=== PATIENT | male | born 1935 | race Caucasian/White ===

== ENCOUNTER → 2016-06-06 | Outpatient (CLI) | payer OTHER ==
[2016-06-06 09:47] LABS: INR 2.4 (0.9-1.1); PROTHROMBIN TIME (PATIENT) 26.9 SECONDS (9.0-12.0)
== END | disposition home or self-care (01) ==
LOC: C.LABVPSUW 09:27
PROVIDERS: ATTEND Internal Medicine Critical Care Medicine
DX: I82.409 Acute embolism and thrombosis of unspecified deep veins of unspecified lower extremity (principal)

== ENCOUNTER → 2016-07-04 | Outpatient (CLI) | payer OTHER ==
[2016-07-04 10:57] LABS: INR 1.9 (0.9-1.1); PROTHROMBIN TIME (PATIENT) 20.5 SECONDS (9.0-12.0)
== END | disposition home or self-care (01) ==
LOC: C.LABVPSUW 10:21
PROVIDERS: ATTEND Internal Medicine Critical Care Medicine
DX: I82.409 Acute embolism and thrombosis of unspecified deep veins of unspecified lower extremity (principal)

== ENCOUNTER → 2016-08-17 | Outpatient (CLI) | payer OTHER ==
[2016-08-17 09:58] LABS: INR 2.3 (0.9-1.1); PROTHROMBIN TIME (PATIENT) 25.1 SECONDS (9.0-12.0)
== END ==
LOC: C.LABVPSUW 09:00
PROVIDERS: ATTEND Internal Medicine Critical Care Medicine
DX: I82.409 Acute embolism and thrombosis of unspecified deep veins of unspecified lower extremity (principal)

== ENCOUNTER → 2016-09-15 | Outpatient (CLI) | payer OTHER ==
[2016-09-15 09:23] LABS: INR 2.5 (0.9-1.1); PROTHROMBIN TIME (PATIENT) 28.1 SECONDS (9.0-12.0)
== END ==
LOC: C.LABVPSUW 08:59
PROVIDERS: ATTEND Internal Medicine Critical Care Medicine
DX: I82.409 Acute embolism and thrombosis of unspecified deep veins of unspecified lower extremity (principal)

== ENCOUNTER → 2016-10-13 | Outpatient (CLI) | payer OTHER ==
[2016-10-13 09:28] LABS: INR 2.1 (0.9-1.1); PROTHROMBIN TIME (PATIENT) 22.9 SECONDS (9.0-12.0)
== END | disposition home or self-care (01) ==
LOC: C.LABVPSUW 09:06
PROVIDERS: ATTEND Internal Medicine Critical Care Medicine
DX: I82.409 Acute embolism and thrombosis of unspecified deep veins of unspecified lower extremity (principal)

== ENCOUNTER → 2016-11-10 | Outpatient (CLI) | payer OTHER ==
[2016-11-10 10:19] LABS: INR 1.8 (0.9-1.1); PROTHROMBIN TIME (PATIENT) 19.5 SECONDS (9.0-12.0)
== END | disposition home or self-care (01) ==
LOC: C.LABVPSUW 09:30
PROVIDERS: ATTEND Internal Medicine Critical Care Medicine
DX: I82.409 Acute embolism and thrombosis of unspecified deep veins of unspecified lower extremity (principal)

== ENCOUNTER → 2016-12-11 | Outpatient (CLI) | payer OTHER ==
[2016-12-11 11:09] LABS: INR 2.1 (0.9-1.1); PROTHROMBIN TIME (PATIENT) 23.6 SECONDS (9.0-12.0)
== END | disposition home or self-care (01) ==
LOC: C.LABVPSUW 10:34
PROVIDERS: ATTEND Internal Medicine Critical Care Medicine
DX: I82.409 Acute embolism and thrombosis of unspecified deep veins of unspecified lower extremity (principal); I48.91 Unspecified atrial fibrillation

== ENCOUNTER → 2017-01-10 | Outpatient (CLI) | payer OTHER ==
[2017-01-10 10:54] LABS: INR 2.5 (0.9-1.1); PROTHROMBIN TIME (PATIENT) 27.8 SECONDS (9.0-12.0)
== END | disposition home or self-care (01) ==
LOC: C.LABVPSUW 09:51
PROVIDERS: ATTEND Internal Medicine Critical Care Medicine
DX: I82.409 Acute embolism and thrombosis of unspecified deep veins of unspecified lower extremity (principal)

== ENCOUNTER → 2017-02-07 | Outpatient (CLI) | payer OTHER ==
[2017-02-07 10:01] LABS: INR 2.3 (0.9-1.1); PROTHROMBIN TIME (PATIENT) 25.2 SECONDS (9.0-12.0)
== END | disposition home or self-care (01) ==
LOC: C.LABVPSUW 09:20
PROVIDERS: ATTEND Internal Medicine Critical Care Medicine
DX: I82.409 Acute embolism and thrombosis of unspecified deep veins of unspecified lower extremity (principal)

== ENCOUNTER → 2017-04-11 | Outpatient (CLI) | payer OTHER ==
[2017-04-11 09:33] LABS: INR 2.3 (0.9-1.1); PROTHROMBIN TIME (PATIENT) 24.1 SECONDS (9.0-12.0)
== END | disposition home or self-care (01) ==
LOC: C.LABVPSUW 09:08
PROVIDERS: ATTEND Internal Medicine Critical Care Medicine
DX: I48.91 Unspecified atrial fibrillation (principal); I82.409 Acute embolism and thrombosis of unspecified deep veins of unspecified lower extremity

== ENCOUNTER → 2017-05-09 | Outpatient (CLI) | payer OTHER ==
[2017-05-09 09:37] LABS: INR 2.5 (0.9-1.1)
== END | disposition home or self-care (01) ==
LOC: C.LABSPEC 08:53
PROVIDERS: ATTEND Internal Medicine Critical Care Medicine
DX: I82.409 Acute embolism and thrombosis of unspecified deep veins of unspecified lower extremity (principal)

== ENCOUNTER → 2017-06-11 | Outpatient (CLI) | payer OTHER ==
[2017-06-11 10:16] LABS: INR 1.7 (0.9-1.1)
== END | disposition home or self-care (01) ==
LOC: C.LABVPSUW 09:17
PROVIDERS: ATTEND Internal Medicine Critical Care Medicine
DX: I82.409 Acute embolism and thrombosis of unspecified deep veins of unspecified lower extremity (principal)

== ENCOUNTER → 2017-07-09 | Outpatient (CLI) | payer OTHER ==
[2017-07-09 09:15] LABS: INR 1.8 (0.9-1.1)
== END ==
LOC: C.LABVPSUW 08:53
PROVIDERS: ATTEND Internal Medicine Critical Care Medicine
DX: I82.409 Acute embolism and thrombosis of unspecified deep veins of unspecified lower extremity (principal)

== ENCOUNTER → 2017-08-07 | Outpatient (CLI) | payer OTHER ==
[2017-08-07 10:05] LABS: INR 1.9 (0.9-1.1)
== END | disposition home or self-care (01) ==
LOC: C.LABVPSUW 09:11
PROVIDERS: ATTEND Internal Medicine Critical Care Medicine
DX: I82.409 Acute embolism and thrombosis of unspecified deep veins of unspecified lower extremity (principal); I87.2 Venous insufficiency (chronic) (peripheral)

== ENCOUNTER → 2017-09-11 | Outpatient (CLI) | payer OTHER ==
[2017-09-11 09:52] LABS: INR 1.7 (0.9-1.1)
== END | disposition home or self-care (01) ==
LOC: C.LABVPSUW 09:16
PROVIDERS: ATTEND Internal Medicine Critical Care Medicine
DX: I82.409 Acute embolism and thrombosis of unspecified deep veins of unspecified lower extremity (principal); I87.2 Venous insufficiency (chronic) (peripheral)

== ENCOUNTER → 2017-12-11 | Outpatient (CLI) | payer OTHER ==
[2017-12-11 10:53] LABS: INR 2.2 (0.9-1.1)
== END | disposition home or self-care (01) ==
LOC: C.LABVPSUW 09:13
PROVIDERS: ATTEND Internal Medicine Critical Care Medicine
DX: I82.409 Acute embolism and thrombosis of unspecified deep veins of unspecified lower extremity (principal); I87.2 Venous insufficiency (chronic) (peripheral)

== ENCOUNTER 2020-05-27 11:20 | Inpatient (IN) ==
--- NOTE | 2020-05-27 11:42 | Emergency Department Note ---
Impression & Plan Acute CVA (cerebrovascular accident), Episodic ataxia with slurred speech ED Provider Note NAME: LAURIE CANCHOLA AGE: 84 SEX: M : 1935 ARRIVES VIA: Walk-In INFORMANT: Patient, ED PROVIDER(S): Abdoul Mcdermott MD Chief Complaint: Slurred speech, gait and balance HPI: Patient does present with the daughter at the bedside. Patient reportedly has some slurred speech and gait difficulty beginning around 8 AM this morning. No recent falls or trauma. The patient does take Coumadin for history of blood clot per the daughter. No recent complaints from the patient. They do believe that the slurred speech has improved but lasted approximately 2 to 3 hours. Patient at the bedside denies any headache neck pain chest pain, nausea, vomiting, fevers, chills, abdominal pain, lower extremity swelling. Patient states his appetite has been appropriate. No prior history of stroke. Patient reportedly has been compliant with his medications. ROS: See HPI for pertinent positives and negatives. A total of 10 systems were reviewed and otherwise negative. Past medical history: See below Surgical history: See below Social history: See below Physical Exam: GENERAL: Glasses and a mask. NAD, non-toxic. EYE EXAM: Normal conjunctiva. PERRL, no anisocoria and EOM's grossly intact w/o pain. NECK: Supple, no nuchal rigidity, no adenopathy, non-tender. No signs of meningismus. LUNGS: Clear to auscultation. Normal chest wall mechanics. HEART: NSR, no MRG. ABDOMEN: Abdomen soft, non-tender, normo-active bowel sounds, no masses, no rebound or guarding. BACK: No CVA TTP. SKIN: No rashes and no bruising. UPPER EXTREMITIES: Upper extremities are grossly normal. LOWER EXTREMITIES: Grossly normal, no edema. NEURO EXAM: A&O x3, cranial nerves II-XII grossly intact, normal speech, moves all 4 extremities on command w/o issue. Differential diagnoses: Infection, dehydration, metabolic abnormality, hypo/hyp erglycemia, electrolyte disturbance, anemia, hypoxia, cardiac sources, intracerebral event, toxicologic, neurologic, as well as other pathologies. Course: Patient was seen and evaluated the bedside. Full history physical exam was performed. EKG: Indication: Weakness Tachycardia with first-degree AV block, rate of 58, prolonged RI, normal QRS and axis, no ST changes. Imaging Studies: Radiology results as stated below per my review in the radiologist's interpretation: UNENHANCED CT OF THE BRAIN; CT ANGIOGRAM OF THE BRAIN; CT ANGIOGRAM OF THE NECK CLINICAL HISTORY: Strokelike symptoms. COMPARISON STUDY: No priors. TECHNIQUE: Unenhanced axial CT scan of the brain is performed. Subsequently, following the IV administration of 119 of Optiray 320, CT angiogram of the head and neck was performed from the aortic arch to the vertex. Images are reviewed in the axial, sagittal, and coronal planes. 3-D MIPS images are created and assessed. IV contrast was administered without complication. All measurements were calculated based on NASCET criteria. A dose lowering technique was utilize d adhering to the principles of ALARA. CT DOSE: 1487.86 mGy.cm FINDINGS: Brain parenchyma: There is age-related involutional change noting moderate subcortical and periventricular microangiopathic disease. There is a 1.5 cm low- attenuation focus in the left basal ganglia seen on image #15. There is no hemorrhage, mass effect, or evidence of acute territorial ischemia by CT criteria. A small chronic lacunar infarct is noted in the right cerebellar hemisphere. There is no evidence of enhancing mass lesion on the angiogram phase images. The ventricles, sulci, and cisterns are prominent secondary to involutional change. Florian-white matter differentiation is preserved. No extra- axial fluid collection is seen. Thoracic aorta: There is atherosclerotic calcification of the thoracic aorta. Visualized portions of the thoracic aorta are normal in caliber. The aortic arch demonstrates standard 3-vessel anatomy. Right carotid arterial system: The right common carotid artery is widely patent, as are the right internal and external carotid arteries. Calcified plaque is seen in the right carotid bulb in the proximal right internal carotid artery. Left carotid arterial system: The left common carotid artery is widely patent, as are the left internal and external carotid arteries. Mild plaque is seen in the carotid bulb. Vertebral arteries: The vertebral arteries are widely patent and codominant. Subclavian arteries: There is less than 50% stenosis of the left subclavian artery and the right innominate artery below the thoracic outlet. Intracranial vasculature: There is atherosclerotic calcification of the cavernous carotid and vertebral arteries. There is origin of the right posterior cerebral artery. There is atherosclerotic irregularity of the cavernous carotid arteries bilaterally. The internal carotid arteries are patent at the skull base, as are the anterior and middle cerebral arteries bilaterally. The vertebrobasilar system and posterior cerebral arteries are patent. The vertebral arteries are codominant. There is no aneurysm, high-grade stenosis, or focal vessel cut off seen throughout the intracranial circulation. Jugular veins: Patent bilaterally. Dural sinuses: Patent. Lung apices: Partially visualized upper lobe lung parenchyma appears clear. Midline sternotomy wires are noted. Soft tissues: The visualized pharyngeal soft tissues are normal in appearance noting angiographic phase technique. The oropharyngeal airway appears widely patent. The salivary and thyroid glands are normal in appearance. No cervical lymphadenopathy is seen. Skeletal structures: The skeletal structures are osteopenic. The calvarium appears intact. The cervical spine is maintained noting multilevel spondylosis. No lytic or blastic lesion is seen. Orbits: The bony orbits are intact. Orbital contents are normal as imaged. Sinuses and mastoids: The paranasal sinuses are clear. The mastoid air cells are well pneumatized. IMPRESSION: 1. There is no hemorrhage, mass effect, or evidence of acute territorial ischemia by CT criteria. 2. There is a 1.5 cm focus of low-attenuation identified in the left basal ganglia. This is of indeterminant chronicity and significance. A subacute to chronic lacunar infarct Is not excluded. If clinically warranted an MRI could be considered for further assessment. 3. Unremarkable CT angiogram of the brain. 4. Unremarkable sonogram of the neck. ACT 112: Negative or not required by law. Electronically signed by: Robb Joe M.D. 05/27/2020 1:07 PM Dictated: 05/27/20 1256 Transcribed: 05/27/20 1305 Brain MRI WITHOUT CONTRAST HISTORY: Visual difficulties. CVA symptoms TECHNIQUE: Multiplanar multisequence MRI of the brain was performed without the use of contrast. COMPARISON STUDY: Head CT 05/27/2020. FINDINGS: A 1.7 cm focus of restricted diffusion within the left basal ganglia consistent with an acute infarct. The midline structures are intact. The ventricles and sulci demonstrate mild age-related involutional changes. There is no mass, hematoma, or midline shift. There is associated edema at the left basal ganglia infarct. The major vascular flow-voids at the skull base are well maintained. Paranasal sinuses and mastoid air cells are clear. Multiple scattered punctate foci of T2 hyperintensity seen within the periventricular and subcortical white matter. These are nonspecific but favor mild microvascular ischemic change. IMPRESSION: An acute left basal ganglia infarct. ACT 112: Negative or not required by law. Electronically signed by: Francis Tirado M.D. 05/27/2020 4:02 PM Dictated: 05/27/20 1600 Transcribed: 05/27/20 1600 Cardiac monitoring: An order was placed for continuous cardiac monitoring. The monitor shows a rate of 63 with sinus rhythm. MDM: Patient did present with concern for slurred speech and ambulatory dysfunction. No slurred speech on exam the patient is awake alert oriented follows commands. No recent signs of trauma. EKG is unremarkable. CT of the head and CT angiography of the head neck which did show a low-attenuation focus of the left basal ganglia. Noncon CT is negative. Patient does have concern for possible infarct. I did speak with the on-call hospitalist Dr. Hayes. The patient was admitted to the medicine service. MRI does show acute left basal ganglia infarct. Patient was admitted to the medicine service. 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 Feels Safe at Home: Yes Physical Activity Frequency: 1-2 Times per Week Physical Activity Frequency Comment: Walks Allergies Allergies Allergy/AdvReac Type Severity Reaction Status Date / Time No Known Allergies Allergy Unverified 05/27/20 13:00 Home Meds Home Medications Medication Instructions Recorded Confirmed aspirin 81 mg PO DAILY 05/27/20 05/27/20 atorvastatin 20 mg PO DAILY 05/27/20 05/27/20 cholecalciferol (vitamin D3) 25 mcg PO DAILY 05/27/20 05/27/20 [Vitamin D3] galantamine 16 mg PO QAM 05/27/20 05/27/20 memantine 28 mg PO DAILY 05/27/20 05/27/20 metoprolol succinate 100 mg PO DAILY 05/27/20 05/27/20 warfarin 4 mg PO DAILY 05/27/20 05/27/20 Results & Data (ED) Vital Signs Vital Signs - 24 hr 05/27/20 11:23 05/27/20 13:39 05/27/20 15:26 Temperature 36.8 C Temperature Source Oral Pulse Rate 63 Pulse Rate [Apical] 62 61 Pulse Rhythm [Apical] Regular Pulse Strength [Apical] Normal Respiratory Rate 18 16 16 Respiratory Effort / Characteristics Non-Labored Spontaneous Non-Labored Spontaneous Respiratory Depth Normal Normal Respiratory Pattern Regular Regular Blood Pressure 138/68 Blood Pressure [Right Arm] 187/77 H Blood Pressure Mean 91 Blood Pressure Mean [Right Arm] 113 Pulse Oximetry 98 96 97 Oxygen Delivery Method Room Air Room Air Room Air Sepsis Recent Fever Within 48 Hours No Sepsis New/Unexplained Change in Mental Status No Sepsis Action Taken by Nursing No Action Required Home Medications Current Medication List: was personally reviewed by me Laboratory Data Attestation: I reviewed the patient's lab results. Result diagrams: 05/27/20 11:47 05/27/20 11:47 Lab Results 05/27/20 05/27/20 05/27/20 Range/Units 11:47 11:47 11:47 WBC 6.38 (4.8-10.8) K/uL RBC 4.29 L (4.7-6.1) M/uL Hgb 14.1 (14.0-18.0) g/dL Hct 41.2 L (42-52) % MCV 96.0 (80-100) fL MCH 32.9 (25-34) pg MCHC 34.2 (32-36) g/dL RDW Std Deviation 44.3 (36.4-46.3) fL RDW Coeff of Lety 12.7 (11.5-14.5) % Plt Count 225 (130-400) K/uL MPV 11.5 H (7.4-10.4) fL Immature Gran % (Auto) 0.2 % Neut % (Auto) 70.1 % Lymph % (Auto) 16.8 % Baldwin % (Auto) 11.8 % Eos % (Auto) 0.9 % Baso % (Auto) 0.2 % Neut # (Auto) 4.48 (1.4-6.5) K/uL Lymph # (Auto) 1.07 L (1.2-3.4) K/uL Baldwin # (Auto) 0.75 H (0.11-0.59) K/uL Eos # (Auto) 0.06 (0-0.5) K/uL Baso # (Auto) 0.01 (0-0.2) K/uL Immature Gran # (Auto) 0.01 (0.00-0.02) K/uL PT 17.1 H (9.0-12.0) Seconds INR 1.7 H (0.9-1.1) APTT 30.1 (21.0-31.0) Seconds PTT Ratio 1.1 Sodium 138 (136-145) mmol/L Potassium 4.0 (3.5-5.1) mmol/L Chloride 107 (98-107) mmol/L Carbon Dioxide 24 (21-32) mmol/L Anion Gap 7.0 (3-11) BUN 16 (7-18) mg/dl Creatinine 1.30 (0.6-1.4) mg/dl Est Cr Clr Drug Dosing 43.4 ml/min Est GFR ( Amer) 57.3 Est GFR (Non-Af Amer) 49.4 BUN/Creatinine Ratio 12.2 (10-20) Glucose 98 (70-99) mg/dl Calcium 9.2 (8.5-10.1) mg/dl Magnesium 2.2 (1.8-2.4) mg/dl Total Bilirubin 1.3 H (0.2-1) mg/dl AST 19 (15-37) U/L ALT 21 (12-78) U/L Alkaline Phosphatase 92 (45-117) U/L Troponin I < 0.015 (0-0.045) ng/ml Total Protein 7.3 (6.4-8.2) gm/dl Albumin 3.3 L (3.4-5.0) gm/dl Globulin 4.0 (2.5-4.0) gm/dl Albumin/Globulin Ratio 0.8 L (0.9-2) Administered Medications Discontinued Medications Lorazepam (Ativan) 0.5 mg in 1 mls @ 1 mls/min IV NOW STA Stop: 05/27/20 15:14 Last Admin: 05/27/20 15:20 Dose: 1 mls/min Documented by: [id number] Ioversol (Optiray 320 125ml) 119 ml IV ONCE ONE Stop: 05/27/20 12:47 Last Admin: 05/27/20 12:47 Dose: 119 ml Documented by: [id number] Discharge Plan Visit Data Chief Complaint: Stroke/CVA Symptoms Stated Complaint: Unable to eat, loss of balance, Slurred speech ED Provider: Abdoul Mcdermott Discharge Problem: Acute CVA (cerebrovascular accident), Episodic ataxia with slurred speech Patient Disposition: Admitted As Inpatient Discharge Instructions Interventions: ED Discharge Assessment Last Done: 05/27/20 16:14 Forms Stand Alone Forms: [facility]pi Prescriptions Prescriptions: No Action atorvastatin 20 mg tablet 20 mg PO DAILY RF: 0 metoprolol succinate 100 mg tablet extended release 24 hr 100 mg PO DAILY RF: 0 aspirin 81 mg Tablet,Delayed Release (Dr/Ec) 81 mg PO DAILY RF: 0 warfarin 2 mg tablet 4 mg PO DAILY RF: 0 galantamine 16 mg capsule,ext rel. pellets 24 hr 16 mg PO QAM RF: 0 cholecalciferol (vitamin D3) [Vitamin D3] 25 mcg (1,000 unit) Tablet 25 mcg PO DAILY RF: 0 memantine 28 mg Capsule,Sprinkle,Er 24hr 28 mg PO DAILY RF: 0 Referrals Referrals: [facility] [Primary Care Provider] -
[2020-05-27 12:03] LABS: Basophils # (auto) 0.01 K/uL (0-0.2); Basophils % (auto) 0.2 %; Eosinophils # (auto) 0.06 K/uL (0-0.5); Eosinophils % (auto) 0.9 %; Hematocrit (blood only) 41.2 % (42-52); Hemoglobin 14.1 g/dL (14.0-18.0); Immature Granulocytes # (auto) 0.01 K/uL (0.00-0.02); Immature Granulocytes % (auto) 0.2 %; Lymphocytes # (auto) 1.07 K/uL (1.2-3.4); Lymphocytes % (auto) 16.8 %; Mean Corpuscular Hemoglobin 32.9 pg (25-34); Mean Corpuscular Hgb Conc 34.2 g/dL (32-36); Mean Platelet Volume 11.5 fL (7.4-10.4); Monocytes # (auto) 0.75 K/uL (0.11-0.59); Monocytes % (auto) 11.8 %; Neutrophils # (auto) 4.48 K/uL (1.4-6.5); Neutrophils % (auto) 70.1 %; Platelet Count 225 K/uL (130-400); RDW Coefficient of Variation 12.7 % (11.5-14.5); RDW Standard Deviation 44.3 fL (36.4-46.3); Red Blood Count 4.29 M/uL (4.7-6.1); White Blood Count 6.38 K/uL (4.8-10.8)
[2020-05-27 12:12] LABS: Alanine Aminotransferase 21 U/L (12-78); Albumin Level 3.3 gm/dl (3.4-5.0); Aspartate Aminotransferase 19 U/L (15-37); BUN Creatinine Ratio 12.2 (10-20); Blood Urea Nitrogen 16 mg/dl (7-18); Calcium 9.2 mg/dl (8.5-10.1); Carbon Dioxide 24 mmol/L (21-32); Chloride 107 mmol/L (98-107); Creatinine Clr Calc Pharmacy 43.4 ml/min; Est GFR (African American) 57.3; Est GFR (Non-African American) 49.4; Glucose 98 mg/dl (70-99); INR 1.7 (0.9-1.1); Magnesium 2.2 mg/dl (1.8-2.4); Partial Thromboplastin Ratio 1.1; Partial Thromboplastin Time 30.1 Seconds (21.0-31.0); Prothrombin Time 17.1 Seconds (9.0-12.0); Sodium 138 mmol/L (136-145)
[2020-05-27 12:17] LABS: Albumin Globulin Ratio 0.8 (0.9-2); Alkaline Phosphatase 92 U/L (45-117); Bilirubin,Total 1.3 mg/dl (0.2-1); Total Protein 7.3 gm/dl (6.4-8.2); Troponin I < 0.015 ng/ml (0-0.045)
[2020-05-27] MEDS ORDERED: OPTIRAY 320 125ml IV ONE (12:46)
--- NOTE | 2020-05-27 13:06 | CT Scan Report ---
UNENHANCED CT OF THE BRAIN; CT ANGIOGRAM OF THE BRAIN; CT ANGIOGRAM OF THE NECK CLINICAL HISTORY: Strokelike symptoms. COMPARISON STUDY: No priors. TECHNIQUE: Unenhanced axial CT scan of the brain is performed. Subsequently, following the IV adminis tration of 119 of Optiray 320, CT angiogram of the head and neck was performed from the aortic arch t o the vertex. Images are reviewed in the axial, sagittal, and coronal planes. 3-D MIPS images are cre ated and assessed. IV contrast was administered without complication. All measurements were calculate d based on NASCET criteria. A dose lowering technique was utilized adhering to the principles of ALA RA. CT DOSE: 1487.86 mGy.cm FINDINGS: Brain parenchyma: There is age-related involutional change noting moderate subcortical and periventri cular microangiopathic disease. There is a 1.5 cm low-attenuation focus in the left basal ganglia see n on image #15. There is no hemorrhage, mass effect, or evidence of acute territorial ischemia by CT criteria. A small chronic lacunar infarct is noted in the right cerebellar hemisphere. There is no ev idence of enhancing mass lesion on the angiogram phase images. The ventricles, sulci, and cisterns ar e prominent secondary to involutional change. Florian-white matter differentiation is preserved. No extr a-axial fluid collection is seen. Thoracic aorta: There is atherosclerotic calcification of the thoracic aorta. Visualized portions of the thoracic aorta are normal in caliber. The aortic arch demonstrates standard 3-vessel anatomy. Right carotid arterial system: The right common carotid artery is widely patent, as are the right int ernal and external carotid arteries. Calcified plaque is seen in the right carotid bulb in the proxim al right internal carotid artery. Left carotid arterial system: The left common carotid artery is widely patent, as are the left customer experience intern al and external carotid arteries. Mild plaque is seen in the carotid bulb. Vertebral arteries: The vertebral arteries are widely patent and codominant. Subclavian arteries: There is less than 50% stenosis of the left subclavian artery and the right inno minate artery below the thoracic outlet. Intracranial vasculature: There is atherosclerotic calcification of the cavernous carotid and vertebr al arteries. There is origin of the right posterior cerebral artery. There is atherosclerotic i rregularity of the cavernous carotid arteries bilaterally. The internal carotid arteries are patent a t the skull base, as are the anterior and middle cerebral arteries bilaterally. The vertebrobasilar s ystem and posterior cerebral arteries are patent. The vertebral arteries are codominant. There is no aneurysm, high-grade stenosis, or focal vessel cut off seen throughout the intracranial circulation. Jugular veins: Patent bilaterally. Dural sinuses: Patent. Lung apices: Partially visualized upper lobe lung parenchyma appears clear. Midline sternotomy wires are noted. Soft tissues: The visualized pharyngeal soft tissues are normal in appearance noting angiographic pha se technique. The oropharyngeal airway appears widely patent. The salivary and thyroid glands are nor mal in appearance. No cervical lymphadenopathy is seen. Skeletal structures: The skeletal structures are osteopenic. The calvarium appears intact. The cervic al spine is maintained noting multilevel spondylosis. No lytic or blastic lesion is seen. Orbits: The bony orbits are intact. Orbital contents are normal as imaged. Sinuses and mastoids: The paranasal sinuses are clear. The mastoid air cells are well pneumatized. IMPRESSION: 1. There is no hemorrhage, mass effect, or evidence of acute territorial ischemia by CT criteria. 2. There is a 1.5 cm focus of low-attenuation identified in the left basal ganglia. This is of indete rminant chronicity and significance. A subacute to chronic lacunar infarct Is not excluded. If clinic ally warranted an MRI could be considered for further assessment. 3. Unremarkable CT angiogram of the brain. 4. Unremarkable sonogram of the neck. ACT 112: Negative or not required by law. Electronically signed by: Robb Joe M.D. 05/27/2020 1:07 PM
[2020-05-27] MEDS ORDERED: LORazepam 0.5 MG/1 ML VIAL IV STA (15:13)
--- NOTE | 2020-05-27 15:37 | History & Physical Report ---
Date of Service May 27, 2020 Assessment & Plan (1) Stroke-like symptoms: Radha Ryland is an 84 year old male with a history of Alzheimer's Dementia (initially diagnosed 2010), CAD s/p CABG x 4 Vessels (02/2012), Paroxysmal Atrial Fibrillation, Paroxysmal Atrial Flutter, Antiphospholipid Antibody, Prior DVT, Chronic Venous Insufficiency, and GERD who presents to [facility] ER today for Stroke Like Symptoms. Patient was experiencing slurred speech, briefly was not talking at all, and gait difficulty beginning around 8 AM this morning. No recent falls or head trauma. Patient's daughter confirms that the slurred speech has improved / resolved but lasted approximately 2 to 3 hours. His daughter who is with him provides most of the history. Apparently, his dementia has been gradually worsening over the past several months, and he is behaving differently as well. Patient denies any headache, stiff neck, chest pain, nausea, vomiting, fevers, chills, abdominal pain, lower extremity swelling. Patient states his appetite has been appropriate. No prior history of stroke. Patient has been compliant with his medications but his INR is subtherapeutic today at 1.7. He has not had any recent medication changes. -- Admit to Med-Surg with Telemetry. -- MRI is ordered. -- Continue Aspirin 81 mg daily. -- Give an additional 6 mg of warfarin today, then resume warfarin at 4 mg daily. -- Neurology consult placed. (2) Episodic ataxia with slurred speech: -- As outlined above. (3) CAD, multiple vessel: -- s/p CABG x 4 Vessels 01/2012. -- No angina or limiting symptoms since. -- Continue Toprol XL 100 mg daily. -- Continue Aspirin and Atorvastatin. (4) HTN (hypertension): -- BP is elevated, we will allow for this. (5) Dyslipidemia: -- Atorvastatin 20 mg daily. (6) Paroxysmal atrial fibrillation: -- Currently in a NSR. -- On terminal worker Warfarin. (7) Antiphospholipid antibody positive: -- On shelter Warfarin. (8) Chronic venous insufficiency: -- Continue wearing compression stockings. History of Present Illness Chief Complaint: -- Stroke like symptoms. Primary Care Provider: [facility] Dr. Marcelino is an 84 year old male with a history of Alzheimer's Dementia (initially diagnosed 2010), CAD s/p CABG x 4 Vessels (01/2012), Paroxysmal Atrial Fibrillation, Paroxysmal Atrial Flutter, Antiphospholipid Antibody, Prior DVT, Chronic Venous Insufficiency, and GERD who presents today after experiencing slurred speech and gait difficulty beginning around 8 AM this morning. No recent falls or head trauma. Patient's daughter confirms that the slurred speech has improved / resolved but lasted approximately 2 to 3 hours. His daughter who is with him provides most of the history. Apparently, his dementia has been gradually worsening over the past several months, and he is behaving differently as well. Patient lives at [place]. Daughter feels that he may need to return to the [facility] for a higher level of care. The patient is opposed to "giving up" his freedom. Patient denies any headache, stiff neck, chest pain, nausea, vomiting, fevers, chills, abdominal pain, lower extremity swelling. Patient states his appetite has been appropriate. No prior history of stroke. Patient has been compliant with his medications. He has not had any recent medication changes. His INR is subtherapeutic at 1.7 today. Allergies Allergy/AdvReac Type Severity Reaction Status Date / Time No Known Allergies Allergy Unverified 05/27/20 13:00 Home Medications Medication Instructions Recorded Confirmed Type aspirin 81 mg PO DAILY 05/27/20 05/27/20 History atorvastatin 20 mg PO DAILY 05/27/20 05/27/20 History cholecalciferol (vitamin D3) 25 mcg PO DAILY 05/27/20 05/27/20 History [Vitamin D3] galantamine 16 mg PO QAM 05/27/20 05/27/20 History memantine 28 mg PO DAILY 05/27/20 05/27/20 History metoprolol succinate 100 mg PO DAILY 05/27/20 05/27/20 History warfarin 4 mg PO DAILY 05/27/20 05/27/20 History Past Med/Surg History Medical History Alzheimer's dementia Antiphospholipid antibody positive CAD, multiple vessel Chronic venous insufficiency DVT (deep venous thrombosis) Dyslipidemia GERD (gastroesophageal reflux disease) HTN (hypertension) Paroxysmal atrial fibrillation Paroxysmal atrial flutter Surgical History H/O Spinal surgery 1963 S/P CABG x 4 [facility] January 2012. 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 HEENT: Head is atraumatic, normocephalic. EOM's intact. Facies symmetric. No perioral cyanosis. NECK: No JVD. JVP is at the level of the clavicle sitting upright. Carotid upstrokes are + 2 bilaterally. CHEST/LUNGS: Clear to auscultation throughout all lung chavez. No wheezes, rales, or crackles. CVS: S1 and S2 are regular without obvious murmurs, gallops, or rubs. PMI is nondisplaced. No lifts, heaves, or thrills. No abdominal aortic or renal bruits. ABDOMINAL EXAM: Bowel sounds are present. No masses, organomegaly, or tenderness. EXTREMITIES: No clubbing or cyanosis. No edema. Intact radial pulses bilaterally. NEUROLOGIC EXAM: Patient is awake, alert, and interactive. Answers questions. Speech is clear. Follows commands. Interosseus atrophy noted bilaterally. Normal image assembler strength bilaterally. Normal strength to manual muscle testing of the major muscle groups in bilateral upper and lower extremities. Redevelopment Specialist: -- NSR at 64 bpm Results & Data Results & Data ([facility]) Vital Signs (Past 12 Hours) Vital Signs Temp Pulse Pulse Resp BP BP Pulse Ox 05/27/20 13:39 62 16 187/77 H 96 05/27/20 11:23 36.8 C 63 18 138/68 98 Laboratory Results Laboratory Results - last 24 hr 05/27/20 05/27/20 05/27/20 11:47 11:47 11:47 WBC 6.38 RBC 4.29 L Hgb 14.1 Hct 41.2 L MCV 96.0 MCH 32.9 MCHC 34.2 RDW Std Deviation 44.3 RDW Coeff of Lety 12.7 Plt Count 225 MPV 11.5 H Immature Gran % (Auto) 0.2 Neut % (Auto) 70.1 Lymph % (Auto) 16.8 [place] % (Auto) 11.8 Eos % (Auto) 0.9 Baso % (Auto) 0.2 Neut # (Auto) 4.48 Lymph # (Auto) 1.07 L [place] # (Auto) 0.75 H Eos # (Auto) 0.06 Baso # (Auto) 0.01 Immature Gran # (Auto) 0.01 PT 17.1 H INR 1.7 H APTT 30.1 PTT Ratio 1.1 Sodium 138 Potassium 4.0 Chloride 107 Carbon Dioxide 24 Anion Gap 7.0 BUN 16 Creatinine 1.30 Est Cr Clr Drug Dosing 43.4 Est GFR ( Amer) 57.3 Est GFR (Non-Af Amer) 49.4 BUN/Creatinine Ratio 12.2 Glucose 98 Calcium 9.2 Magnesium 2.2 Total Bilirubin 1.3 H AST 19 ALT 21 Alkaline Phosphatase 92 Troponin I < 0.015 Total Protein 7.3 Albumin 3.3 L Globulin 4.0 Albumin/Globulin Ratio 0.8 L Diagnostic Findings UNENHANCED CT OF THE BRAIN; CT ANGIOGRAM OF THE BRAIN; CT ANGIOGRAM OF THE NECK CLINICAL HISTORY: Strokelike symptoms. COMPARISON STUDY: No priors. TECHNIQUE: Unenhanced axial CT scan of the brain is performed. Subsequently, following the IV administration of 119 of Optiray 320, CT angiogram of the head and neck was performed from the aortic arch to the vertex. Images are reviewed in the axial, sagittal, and coronal planes. 3-D MIPS images are created and assessed. IV contrast was administered without complication. All measurements were calculated based on NASCET criteria. A dose lowering technique was utilized adhering to the principles of ALARA. CT DOSE: 1487.86 mGy.cm FINDINGS: Brain parenchyma: There is age-related involutional change noting moderate subcortical and periventricular microangiopathic disease. There is a 1.5 cm low- attenuation focus in the left basal ganglia seen on image #15. There is no hemorrhage, mass effect, or evidence of acute territorial ischemia by CT criteria. A small chronic lacunar infarct is noted in the right cerebellar hemisphere. There is no evidence of enhancing mass lesion on the angiogram phase images. The ventricles, sulci, and cisterns are prominent secondary to involutional change. Florian-white matter differentiation is preserved. No extra- axial fluid collection is seen. Thoracic aorta: There is atherosclerotic calcification of the thoracic aorta. Visualized portions of the thoracic aorta are normal in caliber. The aortic arch demonstrates standard 3-vessel anatomy. Right carotid arterial system: The right common carotid artery is widely patent, as are the right internal and external carotid arteries. Calcified plaque is seen in the right carotid bulb in the proximal right internal carotid artery. Left carotid arterial system: The left common carotid artery is widely patent, as are the left internal and external carotid arteries. Mild plaque is seen in the carotid bulb. Vertebral arteries: The vertebral arteries are widely patent and codominant. Subclavian arteries: There is less than 50% stenosis of the left subclavian artery and the right innominate artery below the thoracic outlet. Intracranial vasculature: There is atherosclerotic calcification of the cavernous carotid and vertebral arteries. There is origin of the right posterior cerebral artery. There is atherosclerotic irregularity of the cavernous carotid arteries bilaterally. The internal carotid arteries are patent at the skull base, as are the anterior and middle cerebral arteries bilaterally. The vertebrobasilar system and posterior cerebral arteries are patent. The vertebral arteries are codominant. There is no aneurysm, high-grade stenosis, or focal vessel cut off seen throughout the intracranial circulation. Jugular veins: Patent bilaterally. Dural sinuses: Patent. Lung apices: Partially visualized upper lobe lung parenchyma appears clear. Midline sternotomy wires are noted. Soft tissues: The visualized pharyngeal soft tissues are normal in appearance noting angiographic phase technique. The oropharyngeal airway appears widely patent. The salivary and thyroid glands are normal in appearance. No cervical lymphadenopathy is seen. Skeletal structures: The skeletal structures are osteopenic. The calvarium appears intact. The cervical spine is maintained noting multilevel spondylosis. No lytic or blastic lesion is seen. Orbits: The bony orbits are intact. Orbital contents are normal as imaged. Sinuses and mastoids: The paranasal sinuses are clear. The mastoid air cells are well pneumatized. IMPRESSION: 1. There is no hemorrhage, mass effect, or evidence of acute territorial ischemia by CT criteria. 2. There is a 1.5 cm focus of low-attenuation identified in the left basal ganglia. This is of indeterminant chronicity and significance. A subacute to chronic lacunar infarct Is not excluded. If clinically warranted an MRI could be considered for further assessment. 3. Unremarkable CT angiogram of the brain. 4. Unremarkable sonogram of the neck. MRI is ordered. Medications Administered Discontinued Medications Lorazepam (Ativan) 0.5 mg in 1 mls @ 1 mls/min IV NOW STA Stop: 05/27/20 15:14 Last Admin: 05/27/20 15:20 Dose: 1 mls/min Documented by: [id number] Ioversol (Optiray 320 125ml) 119 ml IV ONCE ONE Stop: 05/27/20 12:47 Last Admin: 05/27/20 12:47 Dose: 119 ml Documented by: [id number] Code Status & VTE Plan VTE Prophylaxis Plan VTE Prophylaxis will be ordered: Yes Supervising Physician Co-Signing Physician Notes I personally saw and examined the patient. I verified all titus points and agree with FINESSE Gonzales with the following exceptions and/or additions: Joe Marcelino is an 84-year-old male who presents to the ER with slurred speech. Unable to get any history from the patient due to memory impairment (patient seen on 2 [place] without family members at bedside) as the patient denied any history of slurred speech. He is alert and able to follow one-step commands but disorientated x3. O/E -alert, disorientated x3, limited neurological exam due to patient cognition however grossly all cranial nerves intact, no expressive or receptive dysphagia, no dysarthria, bilateral upper and lower extremity 5/5 throughout. A/P Acute CVA - stroke order set, TTE, PT/OT, consult neurology, continue aspirin and warfarin, will defer switching aspirin to Plavix to neurology if felt this would be beneficial. Continue atorvastatin, recent LDL at goal < 70. HbA1c with a.m. labs. Allow permissive hypertension but will continue his usual metoprolol with hold parameters to avoid rebound tachycardia. Patient passed dysphagia screen therefore diet ordered. Dementia -continue outpatient regimen galantamine and memantine Subtherapeutic INR, paroxysmal atrial fibrillation - aim 2-3 (consider aiming 2.5-3 to avoid values < 2), increase warfarin dose today of 6 mg, repeat PT/INR in a.m. PG Care Time/CCT Total # of Minutes Spent Total Time Spent with Patient: Total time spent is greater than 50% in coordination of care (as documented) at patient's floor/unit and/or counseling patient:45 Coding Level of Care Code 02110 OBS Care - Level 3 Diagnoses Stroke-like symptoms R29.90 Episodic ataxia with slurred speech G11.8; R47.81 CAD, multiple vessel I25.10 HTN (hypertension) I10 Dyslipidemia E78.5 Paroxysmal atrial fibrillation I48.0 Antiphospholipid antibody positive R76.0 Chronic venous insufficiency I87.2 Time Spent (min) 65
--- NOTE | 2020-05-27 16:04 | Magnetic Resonance Report ---
Brain MRI WITHOUT CONTRAST HISTORY: Visual difficulties. CVA symptoms TECHNIQUE: Multiplanar multisequence MRI of the brain was performed without the use of contrast. COMPARISON STUDY: Head CT 05/27/2020. FINDINGS: A 1.7 cm focus of restricted diffusion within the left basal ganglia consistent with an acu te infarct. The midline structures are intact. The ventricles and sulci demonstrate mild age-related involutional changes. There is no mass, hematoma, or midline shift. There is associated edema at the left basal ganglia infarct. The major vascular flow-voids at the skull base are well maintained. Para nasal sinuses and mastoid air cells are clear. Multiple scattered punctate foci of T2 hyperintensity seen within the periventricular and subcortical white matter. These are nonspecific but favor mild mi crovascular ischemic change. IMPRESSION: An acute left basal ganglia infarct. ACT 112: Negative or not required by law. Electronically signed by: Francis Tirado M.D. 05/27/2020 4:02 PM
[2020-05-27] MEDS ORDERED: WARFARIN SOD 6 MG TAB PO ONE (16:43)
[2020-05-27] MEDS ORDERED: PHARMACIST DISCHARGE MED REC CONSULT PRN (20:29)
[2020-05-27] MEDS ORDERED: ONDANSETRON INJ 2 MG/ML 2 ML VIAL IV PRN (20:33)
[2020-05-27] MEDS ORDERED: ALUMINUM/MAGNESIUM SUSP 30 ML UDC PO PRN (20:33)
[2020-05-27] MEDS ORDERED: ACETAMINOPHEN 325 MG TAB PO PRN (20:33)
--- NOTE | 2020-05-28 06:11 | Electrocardiogram Report ---
Test Reason : Blood Pressure : / mmHG Vent. Rate : 058 BPM Atrial Rate : 058 BPM P-R Int : 204 ms QRS Dur : 086 ms QT Int : 412 ms P-R-T Axes : 056 014 042 degrees QTc Int : 404 ms Sinus bradycardia with occasional Premature ventricular complexes Otherwise normal ECG No previous ECGs available Confirmed by Reji Kim ([id number]) on 05/28/2020 6:10:38 AM Referred By: SELF Confirmed By:Reji Kim
[2020-05-28 06:48] LABS: Basophils # (auto) 0.02 K/uL (0-0.2); Basophils % (auto) 0.3 %; Eosinophils # (auto) 0.07 K/uL (0-0.5); Eosinophils % (auto) 1.1 %; Hematocrit (blood only) 38.4 % (42-52); Hemoglobin 13.3 g/dL (14.0-18.0); Immature Granulocytes # (auto) 0.02 K/uL (0.00-0.02); Immature Granulocytes % (auto) 0.3 %; Lymphocytes # (auto) 1.22 K/uL (1.2-3.4); Lymphocytes % (auto) 19.3 %; Mean Corpuscular Hemoglobin 32.7 pg (25-34); Mean Corpuscular Hgb Conc 34.6 g/dL (32-36); Mean Corpuscular Volume 94.3 fL (80-100); Mean Platelet Volume 11.2 fL (7.4-10.4); Monocytes # (auto) 0.89 K/uL (0.11-0.59); Monocytes % (auto) 14.1 %; Neutrophils # (auto) 4.11 K/uL (1.4-6.5); Neutrophils % (auto) 64.9 %; Platelet Count 240 K/uL (130-400); RDW Coefficient of Variation 12.8 % (11.5-14.5); RDW Standard Deviation 44.2 fL (36.4-46.3); Red Blood Count 4.07 M/uL (4.7-6.1); White Blood Count 6.33 K/uL (4.8-10.8)
[2020-05-28 06:59] LABS: Prothrombin Time 20.5 Seconds (9.0-12.0)
[2020-05-28 07:08] LABS: BUN Creatinine Ratio 11.5 (10-20); Calcium 8.8 mg/dl (8.5-10.1); Creatinine Clr Calc Pharmacy 43.1 ml/min; Est GFR (African American) 56.7; Potassium 3.7 mmol/L (3.5-5.1)
[2020-05-28 08:33] LABS: Estimated Average Glucose 131 mg/dl; Hemoglobin A1C 6.2 % (4.5-5.6)
--- NOTE | 2020-05-28 08:58 | Neurology Consultation ---
Date of Consultation May 28, 2020 Assessment & Plan (1) Infarction of left basal ganglia: Joe Marcelino is an 84 yo man w/ PMH of HTN, pAfib on ASA/warfarin, h/o positive antiphospholipid antibody, Alzheimer's dementia, CAD s/p CABG x4, HLD and GERD who p/t [facility] after acute onset of dysarthria and gait difficulty. Symptom localization: left basal ganglia Stroke mechanism: cardioembolic vs hypercoagulable given known antiphospholipid antibody Stroke WorkUp: - CT head: no hemorrhage, positive for hypodensity in the left basal ganglia, moderate generalized atrophy with ex vacuo dilation, mild to moderate SVID. - CTA head/neck: shows mild right ICA stenosis at the bifurcation, mild diffuse intracranial atherosclerosis with no LVO, high-grade stenosis or aneurysm noted - MRI brain: subacute infarct in the left basal ganglia, moderate SVID, moderate generalized atrophy with ex vacuo dilation. - TTE: pending - Telemetry: pending - A1c: 6.2 - FLP: 52 - Troponin: negative Stroke Management: - Acute treatment: ASA - Vitals, Neurochecks, NIHSS per unit routine - BP parameters: SBP CAP 180, restart home anti-hypertensives for goal normotension over next 3-4 days - Complete ischemic stroke workup with TTE without bubble - Consult speech, PT, OT for supportive management - Will career counselor concerning stroke education, smoking cessation, healthy diet, physical activity, weight loss - Follow up with PCP for assistance with outpatient goals (BP <130/80, LDL <70, A1c <7) - Follow up in neurology clinic in 6-8 weeks (myself or FINESSE Sozua to get in quicker) Secondary Stroke Prevention: - Antiplatelet: ASA 81mg po daily (would see if cardiology still recommends this given he is >5 years from his CABG) - Anticoagulation: continue home warfarin w/ goal INR 2-3 - Statin: Atorvastatin 20mg daily HTN: - BP parameters, as above - Restart home medications with goal of lowering BP to normotension over next 3- 4 days FEN/GI: - Diet: NPO until cleared by Speech evaluation - Monitor lytes and replete PRN Glucose Control: - Sliding scale insulin and accuchecks per primary team to avoid hyperglycemia Thank you for this interesting consult. Plan of care was discussed with primary team. Please call with any questions. (2) Dyslipidemia: (3) HTN (hypertension): (4) Alzheimer disease: (5) Antiphospholipid antibody positive: (6) Paroxysmal atrial fibrillation: History of Present Illness Attending Physician: Omar Diaz MD History of Present Illness Joe Marcelino is an 84 yo man w/ PMH of HTN, pAfib on ASA/warfarin, h/o positive antiphospholipid antibody, Alzheimer's dementia, CAD s/p CABG x4, HLD and GERD who p/t [facility] after acute onset of dysarthria and gait difficulty. 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 In the ED, he was afebrile, BP 138/68, respiratory rate 18, heart rate 63, satting 98% on room air. Labs show WBC 6.3, hemoglobin 14.1, platelets 225, sodium 138, potassium 4.0, creatinine 1.3, glucose 98, INR 1.7, LFTs within normal, troponin negative. Imaging independently reviewed. CT head shows no hemorrhage, positive for hypodensity in the left basal ganglia, moderate generalized atrophy with ex vacuo dilation, mild to moderate SVID. CTA head and neck shows mild right ICA stenosis at the bifurcation, mild diffuse intracranial atherosclerosis with no LVO, high-grade stenosis or aneurysm noted otherwise. MRI brain shows subacute infarct in the left basal ganglia, moderate SVID, moderate generalized atrophy with ex vacuo dilation. On examination, he was unable to provide further history. Was holding his right upper extremity in a flexed position but otherwise had no significant weakness noted. Allergies Allergy/AdvReac Type Severity Reaction Status Date / Time No Known Allergies Allergy Unverified 05/27/20 13:00 Home Medications Medication Instructions Recorded Confirmed Type aspirin 81 mg PO DAILY 05/27/20 05/27/20 History atorvastatin 20 mg PO DAILY 05/27/20 05/27/20 History cholecalciferol (vitamin D3) 25 mcg PO DAILY 05/27/20 05/27/20 History [Vitamin D3] galantamine 16 mg PO QAM 05/27/20 05/27/20 History memantine 28 mg PO DAILY 05/27/20 05/27/20 History metoprolol succinate 100 mg PO DAILY 05/27/20 05/27/20 History warfarin 4 mg PO DAILY 01/21/21 01/21/21 History Patient History Medical History Alzheimer's dementia Antiphospholipid antibody positive CAD, multiple vessel Chronic venous insufficiency DVT (deep venous thrombosis) Dyslipidemia GERD (gastroesophageal reflux disease) HTN (hypertension) Paroxysmal atrial fibrillation Paroxysmal atrial flutter Surgical History H/O Spinal surgery 1963 S/P CABG x 4 [facility] January 2012. 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 CV: RRR on monitor, no significant edema. PULM: Nonlabored respirations on room air. Neuro Exam: MS: Awake and Alert. Oriented to person, not place or date. Speech fluent and appropriate without dysarthria or paraphasic errors. Language intact including naming, comprehension, repetition. Cognition and memory grossly impaired. Attention intact. No neglect. CN: Visual miles full, + blink to threat bilaterally. No extinction to double simultaneous stimuli. Unable to visualize fundi on fundoscopic exam. PERRLA OU. EOMI without nystagmus. Facial sensation intact to LT. Facial muscles full and symmetric. Hearing intact to finger rub bilaterally. Uvula midline with sym metric palatal elevation. Shoulder shrug normal. Tongue midline. MOTOR: Normal bulk and tone. No pronator drift. BUE strength 5-/5 at deltoids, biceps, triceps, wrist flexors and extensors, and finger flexors bilaterally. BLE strength 5-/5 at iliopsoas, hamstrings, quadriceps, tibialis anterior, and gastrocnemius bilaterally. REFLEXES: 1+ at biceps, triceps, brachioradialis, trace patella, and absent Achilles bilaterally. Flexor plantar responses bilaterally. SENSORY: Intact to LT/vibration/temperature throughout, no extinction to double simultaneous stimuli. COORDINATION: No dysmetria or ataxia on [id number] bilaterally. Normal Paco bilaterally. GAIT: Deferred due to physical status. NIH STROKE SCALE 1A. Level of Consciousness (0-3) = 0 1B. LOC Questions (0-2) = 1 1C. LOC Commands (0-2) = 0 2. Best Horizontal Gaze (0-2) = 0 3. Visual Miles (0-3) = 0 4. Facial Palsy (0-3) = 0 5. Motor Arm Right (0-4) = 0 Left (0-4) = 0 6. Motor Leg Right (0-4) = 0 Left (0-4) = 0 7. Limb Ataxia (0-2) = 0 8. Sensory (0-2) = 0 9. Best Language (0-3) = 0 10. Dysarthria (0-2) = 0 11. Extinction and Inattention (0-2) = 0 NIHSS TOTAL = 1 (likely chronic from his underlying dementia) Results & Data ([facility]) Vital Signs (Past 12 Hours) Vital Signs Temp Pulse Pulse Resp BP Pulse Ox 05/28/20 07:07 116 H 05/28/20 06:13 37 C 83 18 182/86 H 94 05/28/20 02:43 36.6 C 64 16 126/56 L 95 05/27/20 23:04 86 05/27/20 22:56 36.6 C 83 18 174/77 H 96 PG Care Time/CCT Total # of Minutes Spent Total Time Spent with Patient: Total time spent is greater than 50% in coordination of care (as documented) at patient's floor/unit and/or counseling patient: Coding Level of Care Code 36138 Initial Inpt Care Lvl 3 Diagnoses Infarction of left basal ganglia I63.9 Dyslipidemia E78.5 HTN (hypertension) I10 Alzheimer disease G30.9; F02.80 Antiphospholipid antibody positive R76.0 Paroxysmal atrial fibrillation I48.0
[2020-05-28] MEDS: ATORVASTATIN 20 MG TAB PO SCH (09:31)
[2020-05-28] MEDS: ASPIRIN 81 MG ECTAB PO SCH (09:31)
[2020-05-28] MEDS: METOPROLOL SUCC 50MG EXT REL TAB PO SCH (09:31)
[2020-05-28] MEDS: CHOLECALCIFEROL 1,000 UNITS 25 MCG TAB PO SCH (09:31)
[2020-05-28] MEDS: GALANTAMINE HYDROBROMIDE 8 MG CAPER PO SCH (09:31)
[2020-05-28] MEDS: MEMANTINE HCL 10 MG TAB PO SCH ×2 (09:31→20:51)
--- NOTE | 2020-05-28 14:08 | Hospitalist Progress Note ---
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 - Continue ASA - Continue anticoagulation for paroxsymal afib - Continue atorvastatin at 20 mg given age and fasting lipids - BP <130/80, LDL <70, A1c <7 - PT/OT/LOCK TECHNICIAN (2) CAD, multiple vessel: S/p CABG. - Continue ASA, statin, beta-mauricio (3) HTN (hypertension): BP today is 150/75. - Goal BP after stroke is <130/80. - Continue beta-mauricio; can add/adjust as needed. (4) Paroxysmal atrial fibrillation: Presently with normal heart rate. - Continue beta-mauricio - Continue warfarin - INR was 2.0 today. (5) CKD (chronic kidney disease) stage 3, GFR 30-59 ml/min: Baseline Cr ~1.3. - Presently at baseline. (6) Antiphospholipid antibody positive: Warfarin as above (7) Chronic venous insufficiency: No inpatient needs. Admission and Anticipated Discharge Date Admission Date: May 27, 2020 Subjective No distress today. Reports no fevers/chills, chest pain, shortness of breath, abdominal pain, nausea, or vomiting. Physical Exam Constitutional: WD/WN, vitals as above Eyes: EOM intact bilaterally; no conjunctival abnormality ENMT: external ear and nose normal, oropharynx normal Neck: trachea midline, no thyromegaly normal visual inspection Respiratory: normal respiratory effort, lungs clear to auscultation no respiratory distress Cardiovascular: RRR, no murmur, no edema Gastrointestinal (Abdomen): Inspection/Auscultation: abdomen normal to inspection; abdomen not distended Musculoskeletal: no cyanosis or clubbing, extremities motor strength 5/5 Skin: no rashes, warm and dry Neurologic: moves all extremities and awake Psychiatric: Orientation: alert, oriented to person and cooperative Results & Data Results & Data ([facility]) Vital Signs (Past 12 Hours) Vital Signs Temp Pulse Pulse Resp BP BP Pulse Ox 05/28/20 11:28 35.7 C L 81 18 147/76 H 98 05/28/20 07:07 116 H 05/28/20 06:13 37 C 83 18 182/86 H 94 05/28/20 02:43 36.6 C 64 16 126/56 L 95 PG Care Time/CCT Total # of Minutes Spent Total Time Spent with Patient: Total time spent is greater than 50% in coordination of care (as documented) at patient's floor/unit and/or counseling patient: Coding Level of Care Code 57741 Subseq Hosp Care Lvl 3 Diagnoses Infarction of left basal ganglia I63.9 CAD, multiple vessel I25.10 HTN (hypertension) I10 Paroxysmal atrial fibrillation I48.0 CKD (chronic kidney disease) stage 3, GFR 30-59 ml/min N18.30 Antiphospholipid antibody positive R76.0 Chronic venous insufficiency I87.2
[2020-05-28] MEDS ORDERED: WARFARIN SOD 4 MG TAB PO SCH (16:00)
--- NOTE | 2020-05-28 18:13 | XCELERA ---
[id number]
[2020-05-29] MEDS ORDERED: hydrALAZINE HCL 20 MG/ML VIAL IV PRN (01:33)
[2020-05-29 06:48] LABS: Basophils # (auto) 0.01 K/uL (0-0.2); Basophils % (auto) 0.1 %; Eosinophils % (auto) 1.3 %; Hematocrit (blood only) 40.7 % (42-52); Hemoglobin 13.9 g/dL (14.0-18.0); Immature Granulocytes # (auto) 0.02 K/uL (0.00-0.02); Immature Granulocytes % (auto) 0.3 %; Lymphocytes # (auto) 1.81 K/uL (1.2-3.4); Lymphocytes % (auto) 24.2 %; Mean Corpuscular Hemoglobin 32.8 pg (25-34); Mean Corpuscular Hgb Conc 34.2 g/dL (32-36); Mean Platelet Volume 11.4 fL (7.4-10.4); Monocytes # (auto) 0.79 K/uL (0.11-0.59); Monocytes % (auto) 10.6 %; Neutrophils # (auto) 4.75 K/uL (1.4-6.5); Neutrophils % (auto) 63.5 %; Platelet Count 247 K/uL (130-400); Red Blood Count 4.24 M/uL (4.7-6.1); White Blood Count 7.48 K/uL (4.8-10.8)
[2020-05-29 07:05] LABS: INR 3.8 (0.9-1.1); Prothrombin Time 37.6 Seconds (9.0-12.0)
[2020-05-29 07:25] LABS: Calcium 9.1 mg/dl (8.5-10.1); Creatinine Clr Calc Pharmacy 40.3 ml/min; Est GFR (African American) 52.4; Est GFR (Non-African American) 45.2; Magnesium 2.2 mg/dl (1.8-2.4); Potassium 3.4 mmol/L (3.5-5.1)
[2020-05-29] MEDS: MEMANTINE HCL 10 MG TAB PO SCH ×2 (08:15→20:19)
[2020-05-29] MEDS: ASPIRIN 81 MG ECTAB PO SCH (08:15)
[2020-05-29] MEDS: METOPROLOL SUCC 50MG EXT REL TAB PO SCH (08:15)
[2020-05-29] MEDS: CHOLECALCIFEROL 1,000 UNITS 25 MCG TAB PO SCH (08:15)
[2020-05-29] MEDS: ATORVASTATIN 20 MG TAB PO SCH (08:15)
[2020-05-29] MEDS: GALANTAMINE HYDROBROMIDE 8 MG CAPER PO SCH (08:15)
--- NOTE | 2020-05-29 11:10 | Hospitalist Progress Note ---
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 - Continue ASA - Continue anticoagulation for paroxysmal afib - Continue atorvastatin at 20 mg given age and fasting lipids - BP <130/80, LDL <70, A1c <7 - PT/OT/BACK PANEL PADDER -> Plan for placement on Sunday. (2) CAD, multiple vessel: S/p CABG. - Continue ASA, statin, beta-mauricio (3) HTN (hypertension): BP today is 115/70. - Goal BP after stroke is <130/80. - Continue beta-mauricio; can add/adjust as needed. (4) Paroxysmal atrial fibrillation: Presently with normal heart rate. - Continue beta-mauricio - Hold warfarin - INR was 3.8 today. (5) CKD (chronic kidney disease) stage 3, GFR 30-59 ml/min: Baseline Cr ~1.3. - Presently at baseline. (6) Antiphospholipid antibody positive: Warfarin as above (7) Chronic venous insufficiency: No inpatient needs. Admission and Anticipated Discharge Date Admission Date: May 28, 2020 Subjective Doing well today. No major issues. Reports no fevers/chills, chest pain, shortness of breath, abdominal pain, nausea, or vomiting. Physical Exam Constitutional: WD/WN, vitals as above Eyes: EOM intact bilaterally; no conjunctival abnormality ENMT: external ear and nose normal, oropharynx normal Neck: trachea midline, no thyromegaly normal visual inspection Respiratory: normal respiratory effort, lungs clear to auscultation no respiratory distress Cardiovascular: RRR, no murmur, no edema Gastrointestinal (Abdomen): Inspection/Auscultation: abdomen normal to inspection; abdomen not distended Musculoskeletal: no cyanosis or clubbing, extremities motor strength 5/5 Skin: no rashes, warm and dry Neurologic: moves all extremities and awake Psychiatric: Orientation: alert, oriented to person and cooperative Results & Data Results & Data ([facility]) Vital Signs (Past 12 Hours) Vital Signs Temp Pulse Pulse Resp BP BP Pulse Ox 05/29/20 11:03 37.0 C 60 20 114/70 96 05/29/20 07:22 36.4 C L 63 20 172/66 H 95 05/29/20 01:17 64 05/28/20 23:09 36.6 C 64 16 173/75 H 97 PG Care Time/CCT Total # of Minutes Spent Total Time Spent with Patient: Total time spent is greater than 50% in coordination of care (as documented) at patient's floor/unit and/or counseling patient: Coding Level of Care Code 39678 Subseq Hosp Care Lvl 2 Diagnoses Infarction of left basal ganglia I63.9 CAD, multiple vessel I25.10 HTN (hypertension) I10 Paroxysmal atrial fibrillation I48.0 CKD (chronic kidney disease) stage 3, GFR 30-59 ml/min N18.30 Antiphospholipid antibody positive R76.0 Chronic venous insufficiency I87.2
[2020-05-30 06:08] LABS: INR 4.1 (0.9-1.1); Prothrombin Time 40.4 Seconds (9.0-12.0)
[2020-05-30] MEDS: GALANTAMINE HYDROBROMIDE 8 MG CAPER PO SCH (08:24)
[2020-05-30] MEDS: MEMANTINE HCL 10 MG TAB PO SCH ×2 (08:24→21:56)
[2020-05-30] MEDS: ASPIRIN 81 MG ECTAB PO SCH (08:24)
[2020-05-30] MEDS: METOPROLOL SUCC 50MG EXT REL TAB PO SCH (08:24)
[2020-05-30] MEDS: ATORVASTATIN 20 MG TAB PO SCH (08:24)
[2020-05-30] MEDS: CHOLECALCIFEROL 1,000 UNITS 25 MCG TAB PO SCH (08:24)
[2020-05-30] MEDS ORDERED: ONDANSETRON 4 MG OD TAB PO PRN (13:00)
--- NOTE | 2020-05-30 15:59 | Hospitalist Progress Note ---
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 - Continue ASA - Continue anticoagulation for paroxysmal afib - Continue atorvastatin at 20 mg given age and fasting lipids - BP <130/80, LDL <70, A1c <7 - PT/OT/PHOTO LAB SPECIALIST -> Plan for placement on Sunday. No concerns today. (2) CAD, multiple vessel: S/p CABG. - Continue ASA, statin, beta-mauricio (3) HTN (hypertension): BP today is 170/80. - Goal BP after stroke is <130/80. - Continue beta-mauricio; switch to carvedilol on 05/31 for improved BP control. (4) Paroxysmal atrial fibrillation: Presently with normal heart rate. - Continue beta-mauricio - Hold warfarin - INR was 4.1 today. (5) CKD (chronic kidney disease) stage 3, GFR 30-59 ml/min: Baseline Cr ~1.3. - Presently at baseline. (6) Antiphospholipid antibody positive: Warfarin as above (7) Chronic venous insufficiency: No inpatient needs. Admission and Anticipated Discharge Date Admission Date: May 28, 2020 Subjective Doing well today. No complaints. Reports no fevers/chills, chest pain, shortness of breath, abdominal pain, nausea, or vomiting. Physical Exam Constitutional: WD/WN, vitals as above Eyes: EOM intact bilaterally; no conjunctival abnormality ENMT: external ear and nose normal, oropharynx normal Neck: trachea midline, no thyromegaly normal visual inspection Respiratory: normal respiratory effort, lungs clear to auscultation no respiratory distress Cardiovascular: RRR, no murmur, no edema Gastrointestinal (Abdomen): Inspection/Auscultation: abdomen normal to inspection; abdomen not distended Musculoskeletal: no cyanosis or clubbing, extremities motor strength 5/5 Skin: no rashes, warm and dry Neurologic: moves all extremities and awake Psychiatric: Orientation: alert, oriented to person and cooperative Results & Data Results & Data ([facility]) Vital Signs (Past 12 Hours) Vital Signs Temp Pulse Pulse Pulse Pulse Resp BP 05/30/20 15:07 36.6 C 74 20 171/83 H 05/30/20 14:48 64 05/30/20 11:11 36.5 C 116 H 20 155/88 H 05/30/20 08:00 36.3 C L 86 18 05/30/20 07:41 62 05/30/20 04:00 36.7 C 65 18 161/83 H BP Pulse Ox 05/30/20 15:07 94 05/30/20 14:48 05/30/20 11:11 96 05/30/20 08:00 180/92 H 98 05/30/20 07:41 05/30/20 04:00 97 PG Care Time/CCT Total # of Minutes Spent Total Time Spent with Patient: Total time spent is greater than 50% in coordination of care (as documented) at patient's floor/unit and/or counseling patient: Coding Level of Care Code 83494 Subseq Hosp Care Lvl 2 Diagnoses Infarction of left basal ganglia I63.9 CAD, multiple vessel I25.10 HTN (hypertension) I10 Paroxysmal atrial fibrillation I48.0 CKD (chronic kidney disease) stage 3, GFR 30-59 ml/min N18.30 Antiphospholipid antibody positive R76.0 Chronic venous insufficiency I87.2
--- NOTE | 2020-05-30 19:57 | Ultrasound Report ---
ULTRASOUND BILATERAL LOWER EXTREMITY VENOUS CLINICAL HISTORY: Deep venous thrombosis. Leg pain. COMPARISON STUDY: No priors. TECHNIQUE: Real-time, grayscale, and color Doppler sonography of the deep veins of the right and left lower extremity was performed from the inguinal crease to the calf. Compression and augmentation wer e utilized. FINDINGS: Right lower extremity: There is no sonographic evidence of deep venous thrombosis in the right lower extremity. The common femoral, superficial femoral, and popliteal veins are patent and normally compr essible. The greater saphenous vein and the profunda femoris vein at the junction with the common fem oral vein are clear. The visualized calf veins are patent. Left lower extremity: Nearly occlusive deep venous thrombosis is identified in the left common femora l vein. Superficial venous thrombus is identified within the proximal greater saphenous vein. The sup erficial femoral and popliteal veins are patent and normally compressible. The profunda femoris vein at the junction with the common femoral vein is clear. The visualized calf veins are patent. IMPRESSION: 1. There is nearly occlusive deep venous thrombosis identified in the left common femoral vein. 2. Superficial venous thrombus is present within the left greater saphenous vein. 3. There is no sonographic evidence of deep venous thrombosis identified in the right lower extremity . ACT 112: Negative or not required by law. . Electronically signed by: Robb Joe M.D. 05/30/2020 7:56 PM
[2020-05-30] MEDS ORDERED: HEPARIN SODIUM/DEXTROSE 25,000 UNITS/500 ML BAG IV SCH (21:15)
--- NOTE | 2020-05-30 21:15 | Communication Note ---
Date of Service: May 30, 2020 Night team contacted regrading results of venous doppler, which showed a nearly occlusive clot of the left common femoral vein and a superficial venous thrombus within the left greater saphenous vein. Of note, patient has history of a DVT on his problem list. On assessment, patient was AAO x zero. When asked if he ever had a blood clot in his legs before, he replied, "no." He denied any chest pain. I contacted permastone mechanic radiologist, Dr. Robb Joe, who was unable to definitely say if the DVT if the acute vs. chronic, although he said he would favor acute clot formation. Of note, patient is on warfarin for paroxysmal A-fib - today is INR was 4.1 and on 05/29/20 it was 3.8. Acute clot formation in the setting of surpatheraputic INR on warfarin is suggestive of a treatment failure. I asked nursing to remove any SCDs. I restricted his activity to bedrest with bathroom privileges. I ordered a baseline PTT. I placed patient on a heparin d rip (no bolus given). Recommend consideration of transitioning to DOAC and IVC filter placement. Resident Activity Tracking Resident Involvement: Resident Care Provided Care Provided: Adult Hospital Medicine
[2020-05-30 22:08] LABS: Partial Thromboplastin Ratio 1.5; Partial Thromboplastin Time 41.4 Seconds (21.0-31.0)
[2020-05-30] MEDS: Heparin IV Standard *NO* Bolus IV SCH (23:35)
[2020-05-31 04:14] LABS: Hematocrit (blood only) 37.6 % (42-52); Hemoglobin 12.8 g/dL (14.0-18.0); Mean Corpuscular Hemoglobin 32.6 pg (25-34); Mean Corpuscular Volume 95.7 fL (80-100); Mean Platelet Volume 11.4 fL (7.4-10.4); Platelet Count 215 K/uL (130-400); RDW Coefficient of Variation 12.7 % (11.5-14.5); RDW Standard Deviation 44.6 fL (36.4-46.3); Red Blood Count 3.93 M/uL (4.7-6.1); White Blood Count 9.95 K/uL (4.8-10.8)
[2020-05-31 04:31] LABS: Prothrombin Time 56.6 Seconds (9.0-12.0)
[2020-05-31 04:33] LABS: Partial Thromboplastin Ratio > 5.0
[2020-05-31 04:38] LABS: BUN Creatinine Ratio 12.8 (10-20); Calcium 8.3 mg/dl (8.5-10.1); Creatinine Clr Calc Pharmacy 40.3 ml/min; Est GFR (African American) 52.4; Est GFR (Non-African American) 45.2; Magnesium 2.3 mg/dl (1.8-2.4); Potassium 4.2 mmol/L (3.5-5.1)
[2020-05-31 04:40] LABS: INR 5.9 (0.9-1.1)
[2020-05-31 04:41] LABS: Partial Thromboplastin Time > 139.0 Seconds (21.0-31.0)
[2020-05-31 06:19] LABS: Partial Thromboplastin Ratio > 5.0
[2020-05-31 06:31] LABS: Partial Thromboplastin Time > 139.0 Seconds (21.0-31.0)
[2020-05-31 07:29] LABS: Partial Thromboplastin Ratio 4.2
[2020-05-31 07:42] LABS: Partial Thromboplastin Time 118.4 Seconds (21.0-31.0)
[2020-05-31] MEDS: GALANTAMINE HYDROBROMIDE 8 MG CAPER PO SCH (08:28)
[2020-05-31] MEDS: MEMANTINE HCL 10 MG TAB PO SCH ×2 (08:28→19:47)
[2020-05-31] MEDS: ATORVASTATIN 20 MG TAB PO SCH (08:28)
[2020-05-31] MEDS: CHOLECALCIFEROL 1,000 UNITS 25 MCG TAB PO SCH (08:28)
[2020-05-31] MEDS: ASPIRIN 81 MG ECTAB PO SCH (08:28)
[2020-05-31] MEDS: carvediloL 6.25 MG TAB PO SCH ×2 (08:28→19:47)
[2020-05-31 09:03] LABS: Partial Thromboplastin Time 84.6 Seconds (21.0-31.0)
[2020-05-31 10:50] LABS: INR 4.6 (0.9-1.1); Prothrombin Time 44.8 Seconds (9.0-12.0)
--- NOTE | 2020-05-31 13:36 | Hospitalist Progress Note ---
Date of Service May 31, 2020 Assessment & Plan (1) DVT (deep venous thrombosis): Doppler done on 05/30 for L>R leg size showed "nearly occlusive deep venous thrombosis in the left common femoral vein." The o/n resident discussed this with the radiologist and the chronicity was not clear, but definitely could be acute. - Discussed with Dr. Garcia on 05/31. Given his INR was <2 on admission and no other checks in last week, this is not considered a warfarin failure. However, given that he has not had many INRs < 2, we will now aim for INR 2.5 - 3.5. Very little literature on this topic, but one paper does report two cases of switches to LMWH. For now, continue with warfarin though. - Continue warfarin with goal INR of 2.5 - 3.5. 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 - Continue ASA - Continue anticoagulation for paroxysmal afib - Continue atorvastatin at 20 mg given age and fasting lipids - BP <130/80, LDL <70, A1c <7 - PT/OT/OXIDE FURNACE TENDER -> Plan for placement on Sunday. Will get OXIDE FURNACE TENDER re-eval and monitor INR another day. (3) CAD, multiple vessel: S/p CABG. - Continue ASA, statin, beta-mauricio (4) HTN (hypertension): BP today is 165/80. - Goal BP after stroke is <130/80. - Continue beta-mauricio; switched to carvedilol on 05/31 for improved BP control. Will add amlodipine if not improved in 1 more day. (5) Paroxysmal atrial fibrillation: Presently with normal heart rate. - Continue beta-mauricio - Hold warfarin - INR was 4.6 today. (6) CKD (chronic kidney disease) stage 3, GFR 30-59 ml/min: Baseline Cr ~1.3. - Presently at baseline. (7) Antiphospholipid antibody positive: New goal is 2.5 - 3.5 given DVT. - Warfarin as above (8) Chronic venous insufficiency: No inpatient needs. Admission and Anticipated Discharge Date Admission Date: May 28, 2020 Subjective Doing well today, but then did gag with lunch. Will have speech see him. Reports no fevers/chills, chest pain, shortness of breath, abdominal pain, nausea. Physical Exam Constitutional: WD/WN, vitals as above Eyes: EOM intact bilaterally; no conjunctival abnormality ENMT: external ear and nose normal, oropharynx normal Neck: trachea midline, no thyromegaly normal visual inspection Respiratory: normal respiratory effort, lungs clear to auscultation no respiratory distress Cardiovascular: RRR, no murmur, no edema Gastrointestinal (Abdomen): Inspection/Auscultation: abdomen normal to inspection; abdomen not distended Musculoskeletal: no cyanosis or clubbing, extremities motor strength 5/5 Skin: no rashes, warm and dry Neurologic: moves all extremities and awake Psychiatric: Orientation: alert, oriented to person and cooperative Results & Data Results & Data ([facility]) Vital Signs (Past 12 Hours) Vital Signs Temp Pulse Pulse Pulse Resp BP Pulse Ox 05/31/20 08:30 64 05/31/20 07:31 36.9 C 58 L 18 166/78 H 95 05/31/20 07:09 52 L 05/31/20 03:06 36.8 C 84 18 146/83 H 93 PG Care Time/CCT Total # of Minutes Spent Total Time Spent with Patient: Total time spent is greater than 50% in coordination of care (as documented) at patient's floor/unit and/or counseling patient: Coding Level of Care Code 45964 Subseq Hosp Care Lvl 3 Diagnoses DVT (deep venous thrombosis) I82.409 Infarction of left basal ganglia I63.9 CAD, multiple vessel I25.10 HTN (hypertension) I10 Paroxysmal atrial fibrillation I48.0 CKD (chronic kidney disease) stage 3, GFR 30-59 ml/min N18.30 Antiphospholipid antibody positive R76.0 Chronic venous insufficiency I87.2
--- NOTE | 2020-05-31 15:54 | CT Scan Report ---
CT OF THE HEAD WITHOUT CONTRAST CLINICAL HISTORY: Dysphagia, high INR, possible bleed? COMPARISON STUDY: Head CT and MRI of the brain May 27, 2019. CT DOSE: 537.48 mGy.cm TECHNIQUE: Helical axial images of the head were obtained without IV contrast. Automated exposure con trol was utilized for the study. A dose lowering technique was utilized adhering to the principles o f ALARA. FINDINGS: No acute intracranial hemorrhage, midline shift or mass effect is present. Basal cisterns a re patent. There are no extra-axial collections. Note is again made of an acute infarct within left b jed ganglia which measures 2.3 cm in extent. Extent of infarct is slightly increased since prior MRI and head CT. There is no acute hemorrhage. No significant mass effect is present. Otherwise, the nicki earance of the brain is unchanged. White matter hypodensity suggests small vessel disease. Visualized portions of the sinuses and mastoid air cells are clear. IMPRESSION: Redemonstration of a 2.3 cm acute infarct within left basal ganglia. No acute hemorrhage . No significant mass effect. Slight increase in extent of acute infarct since prior exam. ACT 112: Negative or not required by law. Electronically signed by: Anton Mendoza M.D. 05/31/2020 3:52 PM
[2020-06-01 06:30] LABS: Hemoglobin 12.7 g/dL (14.0-18.0); Mean Corpuscular Hemoglobin 32.2 pg (25-34); Mean Corpuscular Hgb Conc 33.4 g/dL (32-36); Mean Corpuscular Volume 96.4 fL (80-100); Mean Platelet Volume 11.9 fL (7.4-10.4); Platelet Count 210 K/uL (130-400); RDW Coefficient of Variation 12.8 % (11.5-14.5); RDW Standard Deviation 45.1 fL (36.4-46.3); Red Blood Count 3.94 M/uL (4.7-6.1); White Blood Count 8.61 K/uL (4.8-10.8)
[2020-06-01 06:46] LABS: INR 3.7 (0.9-1.1); Prothrombin Time 36.1 Seconds (9.0-12.0)
[2020-06-01 07:02] LABS: Calcium 8.9 mg/dl (8.5-10.1); Creatinine Clr Calc Pharmacy 48.3 ml/min; Est GFR (Non-African American) 56.1; Potassium 3.9 mmol/L (3.5-5.1)
[2020-06-01] MEDS: MEMANTINE HCL 10 MG TAB PO SCH (08:35)
[2020-06-01] MEDS: carvediloL 6.25 MG TAB PO SCH (08:35)
[2020-06-01] MEDS: ASPIRIN 81 MG ECTAB PO SCH (09:53)
[2020-06-01] MEDS: GALANTAMINE HYDROBROMIDE 8 MG CAPER PO SCH (09:53)
[2020-06-01] MEDS: ATORVASTATIN 20 MG TAB PO SCH (09:53)
[2020-06-01] MEDS: CHOLECALCIFEROL 1,000 UNITS 25 MCG TAB PO SCH (09:53)
--- NOTE | 2020-06-01 11:13 | Fluoroscopy Report ---
MODIFIED BARIUM SWALLOW CLINICAL HISTORY: assess for aspiration COMPARISON STUDY: None. FLUOROSCOPY TIME: 4.9 minutes. TECHNIQUE: A modified barium swallow was performed in conjunction with Speech Pathology. The patient ingested varying consistencies of barium containing material. Video fluoroscopy was performed. FINDINGS: No tracheal aspiration was identified within liquids, nectar thick liquids, pudding or crac kers with paste. Laryngeal penetration was noted with swallows of thin liquids. Epiglottic inversion was normal. Laryngeal elevation was normal. There was mild during of the undersurface of the epiglott is. Note was made of severe esophageal dysmotility. Fluid level within the esophagus was noted. A sma ll hiatal hernia is present. There is mild distal esophageal narrowing. This appears slightly irregul ar. No definite mucosal lesion is identified. IMPRESSION: 1. No tracheal aspiration. Laryngeal penetration with swallows of thin liquids. Full recommendations by speech pathology to follow. 2. Moderate esophageal dilatation with severe esophageal dysmotility. Small hiatal hernia with mild n arrowing of the distal esophagus. Slight associated irregularity without definitive mucosal lesion. H owever, GI consultation is recommended for consideration for endoscopy to exclude a mucosal lesion. ACT 112: Negative or not required by law. Electronically signed by: Anton Mendoza M.D. 06/01/2020 11:12 AM
--- NOTE | 2020-06-01 14:14 | Hospitalist Progress Note ---
Date of Service June 01, 2020 Assessment & Plan (1) Aspiration into airway: Noted occasional episodes of coughing with eating. Video swallow on 06/01 showed no tracheal aspiration; however, did show moderate esophageal dilatation with severe esophageal dysmotility. * Aspiration and reflux precautions * HOB 30 degrees * Fully upright for eating * Slow eating with frequent drinks * Wet foods (2) DVT (deep venous thrombosis): Doppler done on 05/30 for L>R leg size showed "nearly occlusive deep venous thrombosis in the left common femoral vein." The o/n resident discussed this with the radiologist and the chronicity was not clear, but definitely could be acute. - Discussed with Dr. Garcia on 05/31. Given his INR was <2 on admission and no other checks in last week, this is not considered a warfarin failure. However, given that he has not had many INRs < 2, we will now aim for INR 2.5 - 3.5. Very little literature on this topic, but one paper does report two cases of switches to LMWH. For now, continue with warfarin though. - Discussed with Dr. Schulte on 06/[address] Garcia. - Continue warfarin with goal INR of 2.5 - 3.5. 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 - Continue ASA - Continue anticoagulation for paroxysmal afib - Continue atorvastatin at 20 mg given age and fasting lipids - BP <130/80, LDL <70, A1c <7 - PT/OT/AIRPORT ATTENDANT -> Plan for [facility] when medically ready. (4) CAD, multiple vessel: S/p CABG. - Continue ASA, statin, beta-mauricio (5) HTN (hypertension): BP today is 165/80. - Goal BP after stroke is <130/80. - Continue beta-mauricio; switched to carvedilol on 05/31 for improved BP control. Will add amlodipine if not improved in 1 more day. (6) Paroxysmal atrial fibrillation: Presently with normal heart rate. - Continue beta-mauricio - Hold warfarin - INR was 4.6 today. (7) CKD (chronic kidney disease) stage 3, GFR 30-59 ml/min: Baseline Cr ~1.3. - Presently at baseline. (8) Antiphospholipid antibody positive: New goal is 2.5 - 3.5 given DVT. - Warfarin as above (9) Chronic venous insufficiency: No inpatient needs. Admission and Anticipated Discharge Date Admission Date: May 28, 2020 Subjective No complaints today. Reports no fevers/chills, chest pain, shortness of breath, abdominal pain, nausea, or vomiting. Physical Exam Constitutional: WD/WN, vitals as above Eyes: EOM intact bilaterally; no conjunctival abnormality ENMT: external ear and nose normal, oropharynx normal Neck: trachea midline, no thyromegaly normal visual inspection Respiratory: normal respiratory effort, lungs clear to auscultation no respiratory distress Cardiovascular: RRR, no murmur, no edema Gastrointestinal (Abdomen): Inspection/Auscultation: abdomen normal to inspection; abdomen not distended Musculoskeletal: no cyanosis or clubbing, extremities motor strength 5/5 Skin: no rashes, warm and dry Neurologic: moves all extremities and awake Psychiatric: Orientation: alert, oriented to person and cooperative Results & Data Results & Data ([facility]) Vital Signs (Past 12 Hours) Vital Signs Temp Pulse Pulse Pulse Resp BP Pulse Ox 06/01/20 12:04 36.6 C 89 18 129/74 93 06/01/20 08:29 68 06/01/20 07:19 36.8 C 70 20 151/81 H 95 06/01/20 02:49 36.8 C 71 16 172/77 H 97 PG Care Time/CCT Total # of Minutes Spent Total Time Spent with Patient: Total time spent is greater than 50% in coordination of care (as documented) at patient's floor/unit and/or counseling patient: Coding Level of Care Code 00989 Subseq Hosp Care Lvl 3 Diagnoses Aspiration into airway T17.908A DVT (deep venous thrombosis) I82.409 Infarction of left basal ganglia I63.9 CAD, multiple vessel I25.10 HTN (hypertension) I10 Paroxysmal atrial fibrillation I48.0 CKD (chronic kidney disease) stage 3, GFR 30-59 ml/min N18.30 Antiphospholipid antibody positive R76.0 Chronic venous insufficiency I87.2
--- NOTE | 2020-06-01 14:22 | Consultation Report ---
DATE OF CONSULTATION: 06/01/2020 REASON FOR EVALUATION: Difficulty swallowing and possible achalasia. 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 CT and MRI are diagnostic for a left basal ganglion stroke. The patient does have a history of intermittent atrial fibrillation, coronary artery disease, status post bypass surgery and during this hospitalization was also diagnosed with an acute left femoral and saphenous deep vein thrombosis. The patient has been on Coumadin and also takes a baby aspirin daily. His speech is slurred and he was having a little bit of difficulty swallowing, so a speech pathologist was evaluating him today with a video swallow. His swallowing mechanism appears to be intact without any aspiration, but it was noted that he had severe esophageal dysmotility and fluid level in the esophagus with narrowing distally suggestive of achalasia. GI consultation was requested based on that. PAST MEDICAL HISTORY: As above. He has had 4-vessel bypass in 01/2012, hypertension, dyslipidemia, paroxysmal atrial fibrillation, antiphospholipid antibody positive with hypercoagulable state with a left leg DVT, chronic venous insufficiency. MEDICATIONS: At home are baby aspirin, atorvastatin, vitamin D, galantamine, memantine, metoprolol and warfarin. ALLERGIES: None. SOCIAL HISTORY: The [facility] [place]. 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 PHYSICAL EXAMINATION: GENERAL: The patient appears awake, alert, in no acute distress. NEUROLOGIC: He does have some difficulty performing his ideas and enunciating them, but he does appear to understand what is being said. He does have in a chest exam is a sternotomy scar. ABDOMEN: Benign. IMPRESSION: The patient appears to have clinical situation consistent with achalasia. He is having fluid level in his esophagus distal narrowing and apparently no motility of the esophagus on his video swallow, although his oropharyngeal phase of swallowing is normal without aspiration. Because of his multiple medical problems and ongoing need for anticoagulation, I think doing peroral endoscopic myotomy at [facility] is probably not advisable at this time. To confirm achalasia it need a manometry also at [facility]. I think given his age and medical condition, I think that conservative approach would be to do an EGD and inject the lower sphincter with Botox to see if it offers any clinical improvement, I think this carries a much lower risk and if it is successful, he may get several months' worth of improvement in his esophageal emptying. This usually wears off in 2-6 months and may need to be repeated, but hopefully he will be better physical state in a few months, if it works. We will schedule him for an EGD tomorrow. I explained the procedure and he is agreeable to proceed. We will keep him n.p.o. after midnight.
[2020-06-01] MEDS ORDERED: STROKE PATIENT DISCHARGE STA (15:16)
--- NOTE | 2020-06-01 16:55 | Discharge Summary ---
Date of Service June 01, 2020 Admission HPI Per Admitting Provider Dr. Marcelino is an 84 year old male with a history of Alzheimer's Dementia (initially diagnosed 2010), CAD s/p CABG x 4 Vessels (01/2012), Paroxysmal Atrial Fibrillation, Paroxysmal Atrial Flutter, Antiphospholipid Antibody, Prior DVT, Chronic Venous Insufficiency, and GERD who presents today after experiencing slurred speech and gait difficulty beginning around 8 AM this morning. No recent falls or head trauma. Patient's daughter confirms that the slurred speech has improved / resolved but lasted approximately 2 to 3 hours. His daughter who is with him provides most of the history. Apparently, his dementia has been gradually worsening over the past several months, and he is behaving differently as well. Patient lives at [place]. Daughter feels that he may need to return to the [facility] for a higher level of care. The patient is opposed to "giving up" his freedom. Patient denies any headache, stiff neck, chest pain, nausea, vomiting, fevers, chills, abdominal pain, lower extremity swelling. Patient states his appetite has been appropriate. No prior history of stroke. Patient has been compliant with his medications. He has not had any recent medication changes. His INR is subtherapeutic at 1.7 today. Principal Diagnosis Stroke DVT Concern for achalasia Discharge Exam Constitutional WD/WN, vitals as above Eyes EOM intact bilaterally; no conjunctival abnormality ENMT external ear and nose normal, oropharynx normal Neck trachea midline, no thyromegaly normal visual inspection Respiratory normal respiratory effort, lungs clear to auscultation no respiratory distress Cardiovascular RRR, no murmur, no edema Gastrointestinal (Abdomen) Inspection/Auscultation: abdomen normal to inspection; abdomen not distended Musculoskeletal no cyanosis or clubbing, extremities motor strength 5/5 Skin no rashes, warm and dry Neurologic moves all extremities and awake Psychiatric Orientation: alert, oriented to person and cooperative Discharge Data Allergies Allergy/AdvReac Type Severity Reaction Status Date / Time No Known Allergies Allergy Unverified 05/27/20 13:00 Consultations 05/27/20 14:12 ED Decision to Admit Stat 05/27/20 14:45 Consult Neurology Routine 05/27/20 20:29 Consult Case Management - Discharge Planning Routine 06/01/20 11:51 Consult Gastroenterology Routine Procedures Performed Operation Date: 06/02/20 16:00 <No data on this case meets the specified criteria> Ordered Studies 05/27/20 11:51 CT angio head w con Stat CT angio neck with con Stat CT head/brain wo con Stat 05/27/20 14:12 MR brain wo con Stat 05/30/20 16:49 US venous doppler LE BI Routine 05/31/20 14:39 CT head/brain wo con Urgent 06/01/20 11:30 FL video swallow Routine Hospital Course (1) Aspiration into airway: Noted occasional episodes of coughing with eating. Video swallow on 06/01 showed no tracheal aspiration; however, did show moderate esophageal dilatation with severe esophageal dysmotility. * Aspiration and reflux precautions * HOB 30 degrees * Fully upright for eating * Slow eating with frequent drinks * Wet foods - Plan for EGD with Dr. Chepe Villatoro on 06/02 for concern for achalasia; however, patient's daughter and wanted to bring him home. They felt that with his age and dementia that they preferred to avoid procedures. Pros/cons were discussed, and they can follow up as outpatient to reschedule EGD if they desire. (2) DVT (deep venous thrombosis): Doppler done on 05/30 for L>R leg size showed "nearly occlusive deep venous thrombosis in the left common femoral vein." The o/n resident discussed this with the radiologist and the chronicity was not clear, but definitely could be acute. - Discussed with Dr. Garcia on 05/31. Given his INR was <2 on admission and no other checks in last week, this is not considered a warfarin failure. However, given that he has not had many INRs < 2, we will now aim for INR 2.5 - 3.5. Very little literature on this topic, but one paper does report two cases of switches to LMWH. For now, continue with warfarin though. - Discussed with Dr. Schulte on 06/[address] Garcia. - Continue warfarin with goal INR of 2.5 - 3.5. 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 (4) CAD, multiple vessel: S/p CABG. - Continue ASA, statin, beta-mauricio (5) HTN (hypertension): BP today is 155/80. - Goal BP after stroke is <130/80. - Continue beta-mauricio. (6) Paroxysmal atrial fibrillation: Presently with normal heart rate. - Continue beta-mauricio - Hold warfarin - INR was 3.7 today. - Recheck INR by Sunday. Resume warfarin at 3 mg PO daily given with 4 mg he went hypercoagulable very quickly. Will require close monitoring! (7) CKD (chronic kidney disease) stage 3, GFR 30-59 ml/min: Baseline Cr ~1.3. - Presently at baseline. (8) Antiphospholipid antibody positive: New goal is 2.5 - 3.5 given DVT. - Warfarin as above (9) Chronic venous insufficiency: No inpatient needs. Total Time Total Time Spent Total Time Spent (In Minutes): 35 Discharge Plan Discharge Items Patient Disposition: Transfer Long Term Fac Reason For Visit: STROKE LIKE SYMPTOMS Discharge Diagnosis: Stroke, blood clot in the leg, trouble swallowing Activity: Resume your previous activity Non-emergency contact: Primary Care Provider Call non-emergency contact if: your symptoms worsen Follow-up/Referrals: [facility] [Primary Care Provider] - Diet: Heart Healthy Addtl Attending Provider Instructions: Mr. Marcelino, You were admitted to the hospital with a stroke. We saw this mostly with your speech, your swallow, and some trouble walking. Luckily, these symptoms resolved largely. We ended up doing another CT scan which showed the same stroke. We had the speech therapists see you, and while you didn't have any major aspiration, a small amount of thin liquids went down the wrong pipe. * Please do not eat or drink anything unless completely upright and remain upright for at least 30 minutes after eating or drinking. * Please focus on liquids and soft foods. Hard foods are harder to pass through the esophagus. * Try to sleep with the head of the bed up at least 30 degrees. If you reconsider the EGD (scope), please contact Dr. Villatoro. He feels he could offer an injection that could improve the swallowing for at least 2-5 months which would allow you to eat food and drink more easily without having as much choking. You were found to have a DVT (blood clot in the left leg) which we feel was likely because of your low warfarin level (INR). Despite coming with the low INR, your INR quickly climbed on your home dose. Today it is 3.7. Please have your INR checked by the end of the week. Your new goal is 2.5 - 3.5 to help prevent further clots. This is a bit HIGHER than usual, but because of your blood clotting issues, we feel this is appropriate. Risk Factors for Stroke: You can reduce your chances of stroke by working with your medical provider to adopt a healthy lifestyle. Some specific ways to lower your chance of stroke are: * If you are a smoker, now is the time to stop smoking cigarettes * If you are diabetic, improve the control of your blood sugars * Avoid excessive amounts of alcohol * Control high blood pressure * Lose weight if you are overweight * Be sure to lead an active lifestyle * Eat a healthy diet low in salt, cholesterol and fat You should know about other risk factors for stroke that you are unable to control. These include: * Age 55 years or older * Male gender * Certain racial groups: , or / * Family History of Stroke, Mini stroke or Heart Attack * Sickle Cell Disease Follow Up: It is important for you to keep your follow up appointments with your medical provider. Who to Call and When: Medical Emergencies: Call 911 immediately if you experience any of the following warning signs and symptoms of Stroke: * Sudden numbness or weakness of the face, arm or leg, especially on one side of the body * Sudden confusion, trouble speaking or understanding * Sudden trouble seeing in one or both eyes * Sudden trouble walking, dizziness, loss of balance or coordination * Sudden severe headache with no cause Do not delay calling 911 if you experience any warning signs or symptoms of a stroke. Delay in seeking medical attention may affect what treatments can be given to you. . Pending Studies at Discharge: No Stand-Alone Forms: My [facility] Skilled Items Patient informed of condition?: Yes DNR: Yes Discharge Level of Care: Skilled Communicable Disease: No Discharge Prognosis: Stable Lines: None Urinary Catheter: No Medications and DC Order Prescriptions: New warfarin 3 mg tablet 3 mg PO DAILY Qty: 1 RF: 0 Continued atorvastatin 20 mg tablet 20 mg PO DAILY RF: 0 metoprolol succinate 100 mg tablet extended release 24 hr 100 mg PO DAILY RF: 0 aspirin 81 mg Tablet,Delayed Release (Dr/Ec) 81 mg PO DAILY RF: 0 galantamine 16 mg capsule,ext rel. pellets 24 hr 16 mg PO QAM RF: 0 cholecalciferol (vitamin D3) [Vitamin D3] 25 mcg (1,000 unit) Tablet 25 mcg PO DAILY RF: 0 memantine 28 mg Capsule,Sprinkle,Er 24hr 28 mg PO DAILY RF: 0 Discontinued warfarin 2 mg tablet 4 mg PO DAILY RF: 0 Discharge Orders: Discharge Order (Routine); Ordered 06/01/20 Ordered By: Omar Fernandes/Other Patient Handouts: Exercise to Manage Your Blood Sugar, 5 Steps for Eating Healthier, A1C Admission Data Admit Date/Time: 05/28/20 14:08 Attending Provider: Omar Diaz Admit Provider: Sterling Hayes [facility] Other Providers: Peter Briscoe ; Nabeel Pearson ; Nikki Latif ; Paulina Allen ; Omar Diaz ; Chepe Villatoro Other Interventions: Discharge Summary Assessment (RN) Last Done: 06/01/20 15:43 Coding Level of Care Code D/C Day Management >30 mins Diagnoses Aspiration into airway T17.908A DVT (deep venous thrombosis) I82.409 Infarction of left basal ganglia I63.9 CAD, multiple vessel I25.10 HTN (hypertension) I10 Paroxysmal atrial fibrillation I48.0 CKD (chronic kidney disease) stage 3, GFR 30-59 ml/min N18.30 Antiphospholipid antibody positive R76.0 Chronic venous insufficiency I87.2
[2020-06-02] MEDS ORDERED: BOTULINUM TOXIN TYPE A 100 UNIT VIAL IM ONE (13:00)
== END 2020-06-01 16:23 | DRG 65 ==
LOC: ED 11:20 → 2N 11:20 → SUATTDRO 15:07 → 2N 16:14

== ENCOUNTER 2020-12-07 16:23 | Observation (INO) ==
[2020-12-07] MEDS ORDERED: OPTIRAY 320 125ml IV ONE (16:33)
--- NOTE | 2020-12-07 16:43 | Emergency Department Note ---
Impression & Plan TIA (transient ischemic attack), Syncope ED Provider Note NAME: LAURIE CANCHOLA AGE: 85 SEX: M : 1935 ARRIVES VIA: Ambulance INFORMANT: Patient, EMS personnel ED PROVIDER(S): Jorge Luis Santa DO CHIEF COMPLAINT: Strokelike symptoms HPI: The patient is an 85-year-old male who presented to the emergency department for strokelike symptoms. The patient lives at the [facility]. He normally is able to ambulate and care for himself normally. The patient was walking with a friend. He went to sit down. The patient then had a syncopal episode and fell to the ground. The friend went to call for help and when he returned the patient was awake but very confused. 911 was called and the patient was brought to the emergency department. He was made a stroke alert prior to arrival. He does have a history of atrial fibrillation as well as oral anticoagulation use. The patient was made a stroke alert prior to arrival after I received a prehospital notification from the EMS personnel. The patient was awake but somewhat confused upon arrival. There was no reported seizure. The patient did not lose bowel or bladder continence. He did not bite his tongue. The patient did mention a headache to the prehospital personnel but at this time is denying any headache. He is able to answer questions in short answers and at this time is denying any chest pain nausea or vomiting. The patient's blood pressure was found to be very elevated. His blood sugar was not low prior to arrival. There was no reported trauma. It is unclear if the patient hurt himself when he had the syncopal episode. ROS: See above HPI for pertinent positives & negatives. A total of 10 systems reviewed and were otherwise negative. PAST MEDICAL HISTORY: See Below PAST SURGICAL HISTORY: See Below FAMILY HISTORY: See Below SOCIAL HISTORY: See Below HOME MEDICATIONS: See Below ALLERGIES: See Below VITALS: See Below PHYSICAL EXAMINATION: GENERAL: The patient is awake and looking around the room but he seems somewhat absent. EYES: The conjunctivae are clear. The pupils are round and reactive. EARS, NOSE, MOUTH AND THROAT: The nose is without any evidence of any deformity. NECK: The neck is nontender and supple. RESPIRATORY: Normal respiratory effort is noted there is no evidence of wheezing rhonchi or rales CARDIOVASCULAR: Regular rate and rhythm noted there no murmurs rubs or gallops normal S1 normal S2. GASTROINTESTINAL: The abdomen is soft. Abdomen is nontender. MUSCULOSKELETAL/EXTREMITIES: There is no evidence of gross deformity full range of motion is noted in the hips and shoulders. SKIN: Bilateral lower extremity edema was noted left greater than right. Skin is warm and dry. NEUROLOGIC: Patient is awake and oriented to person but he is confused to place and time. 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 Speech is pressured and dysarthric. The patient is able to hold each leg off the bed but for less than 5 seconds. MEDICAL DECISION MAKING: The patient is an 85-year-old male who presented to the emergency department for an evaluation of strokelike symptoms. The patient had a syncopal episode but then was found to be confused and dysarthric. The patient does have a history of stroke as well as atrial fibrillation. He does have Coumadin use. It is unclear exactly what happened however the patient on reevaluation was significantly improved. His blood pressure was still elevated. He was treated with a small amount of IV antihypertensive medication. I discussed the patient's laboratory and radiographic studies with him. [facility] agreed to evaluate the patient in the emergency department for further management and disposition. I also discussed this case with the stroke neurologist from [facility]. The patient was not a TPA candidate. He was also not found to have a large vessel occlusion and with rapidly improving symptoms. Triage Nursing notes reviewed. Prior medical records reviewed Vital Signs: reviewed and remarkable for elevated blood pressure. Differential diagnosis: Infection, dehydration, metabolic abnormality, hypo/hyperglycemia, electrolyte disturbance, anemia, hypoxia, cardiac sources, intracerebral event, toxicologic, neurologic, as well as other pathologies. ER treatment provided: See below Diagnostics interpreted by me: ECG: EKG was obtained in the emergency department. My interpretation is sinus rhythm at 71 bpm. There was no ectopy. Inferior T wave abnormalities were noted. This was compared to a tracing from May 272020. No significant changes were noted. Cardiac Monitoring: An order was placed for continuous cardiac monitoring. The monitor shows a rate of 83 bpm with sinus rhythm. Laboratory studies: As stated above and show below. Imaging studies: See below Consultation(s): [id number]: I discussed this case with Dr. Munguia who is on-call for [facility]. He is agreed to evaluate the patient in the emergency department. I discussed this case with Dr. Mcmahan who is on-call for [facility] telestroke neurology. 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 Feels Safe at Home: Yes Physical Activity Frequency: 1-2 Times per Week Physical Activity Frequency Comment: Walks Assistive Devices: Walker Allergies Allergies Allergy/AdvReac Type Severity Reaction Status Date / Time No Known Allergies Allergy Unverified 05/27/20 13:00 Home Meds Home Medications Medication Instructions Recorded Confirmed aspirin 81 mg tablet,delayed 81 mg PO DAILY 05/27/20 05/27/20 release atorvastatin 20 mg tablet 20 mg PO DAILY 05/27/20 05/27/20 cholecalciferol (vitamin D3) 25 25 mcg PO DAILY 05/27/20 05/27/20 mcg (1,000 unit) tablet (Vitamin D3) galantamine 16 mg 24 hr 16 mg PO QAM 05/27/20 05/27/20 capsule,extended release memantine 28 mg capsule 28 mg PO DAILY 05/27/20 05/27/20 sprinkle,extended release 24hr metoprolol succinate 100 mg 100 mg PO DAILY 05/27/20 05/27/20 tablet,extended release 24 hr Previous Rx's Medication Instructions Recorded warfarin 3 mg tablet 3 mg PO DAILY #1 tab 06/01/20 Results & Data (ED) Vital Signs Vital Signs - 24 hr 12/07/20 16:35 12/07/20 16:39 12/07/20 17:01 Temperature 36.6 C Temperature Source Oral Pulse Rate 70 69 65 Pulse Rate from SpO2 Sensor 69 65 Pulse Rhythm Regular Pulse Strength Normal Respiratory Rate 21 14 18 Respiratory Effort / Characteristics Non-Labored Spontaneous Respiratory Depth Normal Respiratory Pattern Regular Blood Pressure 211/89 H 211/89 H 189/89 H Blood Pressure Mean 129 129 122 Blood Pressure Position Lying Pulse Oximetry 100 96 97 Oxygen Delivery Method Room Air Sepsis Recent Fever Within 48 Hours No Sepsis New/Unexplained Change in Mental Status Yes Sepsis Action Taken by Nursing Physician Notified 12/07/20 17:16 12/07/20 17:30 12/07/20 17:45 Temperature Temperature Source Pulse Rate 64 66 83 Pulse Rate from SpO2 Sensor 63 Pulse Rhythm Pulse Strength Respiratory Rate 18 21 20 Respiratory Effort / Characteristics Respiratory Depth Respiratory Pattern Blood Pressure 174/78 H 194/87 H 185/99 H Blood Pressure Mean 110 122 127 Blood Pressure Position Pulse Oximetry 98 96 97 Oxygen Delivery Method Sepsis Recent Fever Within 48 Hours Sepsis New/Unexplained Change in Mental Status Sepsis Action Taken by Residential Medications Current Medication List: was personally reviewed by me Laboratory Data Attestation: I reviewed the patient's lab results. Result diagrams: 12/07/20 16:52 12/07/20 16:52 Lab Results 12/07/20 12/07/20 12/07/20 Range/Units 16:37 16:45 16:45 WBC (4.8-10.8) K/uL RBC (4.7-6.1) M/uL Hgb (14.0-18.0) g/dL Hct (42-52) % MCV (80-100) fL MCH (25-34) pg MCHC (32-36) g/dL RDW Std Deviation (36.4-46.3) fL RDW Coeff of Lety (11.5-14.5) % Plt Count (130-400) K/uL MPV (7.4-10.4) fL Immature Gran % (Auto) % Neut % (Auto) % Lymph % (Auto) % Butler % (Auto) % Eos % (Auto) % Baso % (Auto) % Neut # (Auto) (1.4-6.5) K/uL Lymph # (Auto) (1.2-3.4) K/uL Butler # (Auto) (0.11-0.59) K/uL Eos # (Auto) (0-0.5) K/uL Baso # (Auto) (0-0.2) K/uL Immature Gran # (Auto) (0.00-0.02) K/uL PT (9.0-12.0) Seconds INR (0.9-1.1) APTT (21.0-31.0) Seconds PTT Ratio Sodium (136-145) mmol/L Potassium (3.5-5.1) mmol/L Chloride (98-107) mmol/L Carbon Dioxide (21-32) mmol/L Anion Gap (3-11) BUN (7-18) mg/dl Creatinine (0.6-1.4) mg/dl Est Cr Clr Drug Dosing ml/min Est GFR ( Amer) ml/min Est GFR (Non-Af Amer) ml/min BUN/Creatinine Ratio (10-20) Glucose (70-99) mg/dl POC Glucose 130 H (70-99) mg/dl Calcium (8.5-10.1) mg/dl Magnesium (1.8-2.4) mg/dl Total Bilirubin (0.2-1) mg/dl AST (15-37) U/L ALT (12-78) U/L Alkaline Phosphatase (45-117) U/L Troponin I (0-0.045) ng/ml Total Protein (6.4-8.2) gm/dl Albumin (3.4-5.0) gm/dl Globulin (2.5-4.0) gm/dl Albumin/Globulin Ratio (0.9-2) Prolactin ng/ml COVID-19 Eval Order Covid19 at [facility] SARS-CoV-2 (PCR) NEGATIVE (Negative) 12/07/20 12/07/20 12/07/20 Range/Units 16:52 16:52 16:52 WBC 6.14 (4.8-10.8) K/uL RBC 3.77 L (4.7-6.1) M/uL Hgb 12.2 L (14.0-18.0) g/dL Hct 37.0 L (42-52) % MCV 98.1 (80-100) fL MCH 32.4 (25-34) pg MCHC 33.0 (32-36) g/dL RDW Std Deviation 46.7 H (36.4-46.3) fL RDW Coeff of Lety 13.0 (11.5-14.5) % Plt Count 184 (130-400) K/uL MPV 11.9 H (7.4-10.4) fL Immature Gran % (Auto) 0.5 % Neut % (Auto) 66.6 % Lymph % (Auto) 20.7 % Butler % (Auto) 10.9 % Eos % (Auto) 1.1 % Baso % (Auto) 0.2 % Neut # (Auto) 4.09 (1.4-6.5) K/uL Lymph # (Auto) 1.27 (1.2-3.4) K/uL Butler # (Auto) 0.67 H (0.11-0.59) K/uL Eos # (Auto) 0.07 (0-0.5) K/uL Baso # (Auto) 0.01 (0-0.2) K/uL Immature Gran # (Auto) 0.03 H (0.00-0.02) K/uL PT 28.7 H (9.0-12.0) Seconds INR 3.1 H (0.9-1.1) APTT 36.5 H (21.0-31.0) Seconds PTT Ratio 1.4 Sodium 138 (136-145) mmol/L Potassium 4.5 (3.5-5.1) mmol/L Chloride 108 H (98-107) mmol/L Carbon Dioxide 27 (21-32) mmol/L Anion Gap 3.0 (3-11) BUN 22 H (7-18) mg/dl Creatinine 1.42 H (0.6-1.4) mg/dl Est Cr Clr Drug Dosing 43.5 ml/min Est GFR ( Amer) 51.1 ml/min Est GFR (Non-Af Amer) 44.1 ml/min BUN/Creatinine Ratio 15.6 (10-20) Glucose 121 H (70-99) mg/dl POC Glucose (70-99) mg/dl Calcium 8.4 L (8.5-10.1) mg/dl Magnesium 2.3 (1.8-2.4) mg/dl Total Bilirubin 0.5 (0.2-1) mg/dl AST 21 (15-37) U/L ALT 25 (12-78) U/L Alkaline Phosphatase 83 (45-117) U/L Troponin I < 0.015 (0-0.045) ng/ml Total Protein 6.5 (6.4-8.2) gm/dl Albumin 3.2 L (3.4-5.0) gm/dl Globulin 3.3 (2.5-4.0) gm/dl Albumin/Globulin Ratio 1.0 (0.9-2) Prolactin ng/ml COVID-19 Eval Order SARS-CoV-2 (PCR) (Negative) 12/07/20 Range/Units 16:53 WBC (4.8-10.8) K/uL RBC (4.7-6.1) M/uL Hgb (14.0-18.0) g/dL Hct (42-52) % MCV (80-100) fL MCH (25-34) pg MCHC (32-36) g/dL RDW Std Deviation (36.4-46.3) fL RDW Coeff of Lety (11.5-14.5) % Plt Count (130-400) K/uL MPV (7.4-10.4) fL Immature Gran % (Auto) % Neut % (Auto) % Lymph % (Auto) % Butler % (Auto) % Eos % (Auto) % Baso % (Auto) % Neut # (Auto) (1.4-6.5) K/uL Lymph # (Auto) (1.2-3.4) K/uL Butler # (Auto) (0.11-0.59) K/uL Eos # (Auto) (0-0.5) K/uL Baso # (Auto) (0-0.2) K/uL Immature Gran # (Auto) (0.00-0.02) K/uL PT (9.0-12.0) Seconds INR (0.9-1.1) APTT (21.0-31.0) Seconds PTT Ratio Sodium (136-145) mmol/L Potassium (3.5-5.1) mmol/L Chloride (98-107) mmol/L Carbon Dioxide (21-32) mmol/L Anion Gap (3-11) BUN (7-18) mg/dl Creatinine (0.6-1.4) mg/dl Est Cr Clr Drug Dosing ml/min Est GFR ( Amer) ml/min Est GFR (Non-Af Amer) ml/min BUN/Creatinine Ratio (10-20) Glucose (70-99) mg/dl POC Glucose (70-99) mg/dl Calcium (8.5-10.1) mg/dl Magnesium (1.8-2.4) mg/dl Total Bilirubin (0.2-1) mg/dl AST (15-37) U/L ALT (12-78) U/L Alkaline Phosphatase (45-117) U/L Troponin I (0-0.045) ng/ml Total Protein (6.4-8.2) gm/dl Albumin (3.4-5.0) gm/dl Globulin (2.5-4.0) gm/dl Albumin/Globulin Ratio (0.9-2) Prolactin 16.20 ng/ml COVID-19 Eval Order SARS-CoV-2 (PCR) (Negative) Administered Medications Discontinued Medications Acetaminophen (Acetaminophen 1000 Mg/100 Ml Iv) 1,000 mg IV ONE ONE Stop: 12/07/20 16:58 Last Admin: 12/07/20 17:45 Dose: 1,000 mg Documented by: [id number] Hydralazine HCl (Hydralazine Hcl 20 Mg/Ml Vial) 5 mg IV NOW ONE Stop: 12/07/20 17:39 Last Admin: 12/07/20 17:48 Dose: 5 mg Documented by: [id number] Ioversol (Optiray 320 125ml) 120 ml IV ONCE ONE Stop: 12/07/20 16:34 Last Admin: 12/07/20 16:33 Dose: 120 ml Documented by: [id number] Imaging Data Radiologist's Impression: Chest X-Ray 12/07/20 16:23 XR chest 1V portable CLINICAL HISTORY: Stroke Like Symptoms COMPARISON STUDY: No previous studies for comparison. FINDINGS: Lung volumes are normal. Lungs are clear. There is no pneumothorax or pleural effusion. Mild cardiomegaly is noted. There are median sternotomy wires, mediastinal surgical clips and a left atrial appendage occluder device. Mediastinal contours are normal. There is no evidence for pulmonary edema. IMPRESSION: No acute cardiopulmonary findings. ACT 112: Negative or not required by law. Electronically signed by: Anton Mendoza M.D. 12/07/2020 5:[address] 12/07/20 16:[address] OF THE BRAIN; CT ANGIOGRAM OF THE BRAIN; CT ANGIOGRAM OF THE NECK CLINICAL HISTORY: Strokelike symptoms. COMPARISON STUDY: CT of the brain dated 05/31/2020. CT angiogram of the head and neck dated 05/27/2020. TECHNIQUE: Unenhanced axial CT scan of the brain is performed. Subsequently, following the IV administration of 120 of Optiray 320, CT angiogram of the head and neck was performed from the aortic arch to the vertex. Images are reviewed in the axial, sagittal, and coronal planes. 3-D MIPS images are created and assessed. IV contrast was administered without complication. All measurements were calculated based on NASCET criteria. A dose lowering technique was utilized adhering to the principles of ALARA. CT DOSE: 1213.59 mGy.cm FINDINGS: Brain parenchyma: There is age-related involutional change noting moderate subcortical and periventricular microangiopathic disease. A chronic lacunar infarct is noted in the left dunn radiata. There is no hemorrhage, mass effect, or evidence of acute territorial ischemia by CT criteria. There is no evidence of enhancing mass lesion on the angiogram phase images. The ventricles, sulci, and cisterns are prominent secondary to involutional change. Florian-white matter differentiation is preserved. No extra-axial fluid collection is seen. Thoracic aorta: There is atherosclerotic calcification of the thoracic aorta. Visualized portions of the thoracic aorta are normal in caliber. The aortic arch demonstrates standard 3-vessel anatomy. Right carotid arterial system: The right common carotid artery is widely patent, as are the right internal and external carotid arteries. Calcified plaque is noted in the carotid bulb and proximal internal carotid artery. Left carotid arterial system: The left common carotid artery is widely patent, as are the left internal and external carotid arteries. Mild plaque is noted in the carotid bulb. Vertebral arteries: The vertebral arteries are widely patent bilaterally and codominant. Subclavian arteries: Atherosclerotic plaque causes less than 50% luminal narrowing of the left subclavian artery below the thoracic outlet. The subclavian arteries are otherwise widely patent bilaterally. Intracranial vasculature: There is atherosclerotic calcification of the cavernous carotid and vertebral arteries. There is origin of the right posterior cerebral artery. The internal carotid arteries are patent at the skull base, as are the anterior and middle cerebral arteries bilaterally. The vertebrobasilar system and posterior cerebral arteries are widely patent. The vertebral arteries are codominant. There is no aneurysm, high-grade stenosis, or focal vessel cut off seen throughout the intracranial circulation. Jugular veins: Patent bilaterally. Dural sinuses: Patent. Lung apices: Partially visualized upper lobe lung parenchyma appears clear. Soft tissues: The visualized pharyngeal soft tissues are normal in appearance noting angiographic phase technique. The oropharyngeal airway appears widely patent. The salivary and thyroid glands are normal in appearance. No cervical lymphadenopathy is seen. Skeletal structures: The skeletal structures are osteopenic. The calvarium appears intact. The cervical spine is maintained noting multilevel spondylosis. No lytic or blastic lesion is seen. Compression deformities are seen in the upper thoracic spine. Orbits: The bony orbits are intact. Orbital contents are normal as visualized. Sinuses and mastoids: The paranasal sinuses are clear. There are trace mastoid effusions. IMPRESSION: 1. There is no hemorrhage, mass effect, or evidence of acute territorial ischemia by CT criteria. 2. Unremarkable CT angiogram of the brain. 3. Unremarkable CT angiogram of the neck. ACT 112: Negative or not required by law. Electronically signed by: Robb Joe M.D. 12/07/2020 4:45 PM Head CTA 12/07/20 16:[address] OF THE BRAIN; CT ANGIOGRAM OF THE BRAIN; CT ANGIOGRAM OF THE NECK CLINICAL HISTORY: Strokelike symptoms. COMPARISON STUDY: CT of the brain dated 05/31/2020. CT angiogram of the head and neck dated 05/27/2020. TECHNIQUE: Unenhanced axial CT scan of the brain is performed. Subsequently, following the IV administration of 120 of Optiray 320, CT angiogram of the head and neck was performed from the aortic arch to the vertex. Images are reviewed in the axial, sagittal, and coronal planes. 3-D MIPS images are created and assessed. IV contrast was administered without complication. All measurements were calculated based on NASCET criteria. A dose lowering technique was utilized adhering to the principles of ALARA. CT DOSE: 1213.59 mGy.cm FINDINGS: Brain parenchyma: There is age-related involutional change noting moderate subcortical and periventricular microangiopathic disease. A chronic lacunar infarct is noted in the left dunn radiata. There is no hemorrhage, mass effect, or evidence of acute territorial ischemia by CT criteria. There is no evidence of enhancing mass lesion on the angiogram phase images. The ventricles, sulci, and cisterns are prominent secondary to involutional change. Florian-white matter differentiation is preserved. No extra-axial fluid collection is seen. Thoracic aorta: There is atherosclerotic calcification of the thoracic aorta. Visualized portions of the thoracic aorta are normal in caliber. The aortic arch demonstrates standard 3-vessel anatomy. Right carotid arterial system: The right common carotid artery is widely patent, as are the right internal and external carotid arteries. Calcified plaque is noted in the carotid bulb and proximal internal carotid artery. Left carotid arterial system: The left common carotid artery is widely patent, as are the left internal and external carotid arteries. Mild plaque is noted in the carotid bulb. Vertebral arteries: The vertebral arteries are widely patent bilaterally and codominant. Subclavian arteries: Atherosclerotic plaque causes less than 50% luminal na rrowing of the left subclavian artery below the thoracic outlet. The subclavian arteries are otherwise widely patent bilaterally. Intracranial vasculature: There is atherosclerotic calcification of the cavernous carotid and vertebral arteries. There is origin of the right posterior cerebral artery. The internal carotid arteries are patent at the skull base, as are the anterior and middle cerebral arteries bilaterally. The vertebrobasilar system and posterior cerebral arteries are widely patent. The vertebral arteries are codominant. There is no aneurysm, high-grade stenosis, or focal vessel cut off seen throughout the intracranial circulation. Jugular veins: Patent bilaterally. Dural sinuses: Patent. Lung apices: Partially visualized upper lobe lung parenchyma appears clear. Soft tissues: The visualized pharyngeal soft tissues are normal in appearance noting angiographic phase technique. The oropharyngeal airway appears widely patent. The salivary and thyroid glands are normal in appearance. No cervical lymphadenopathy is seen. Skeletal structures: The skeletal structures are osteopenic. The calvarium appears intact. The cervical spine is maintained noting multilevel spondylosis. No lytic or blastic lesion is seen. Compression deformities are seen in the upper thoracic spine. Orbits: The bony orbits are intact. Orbital contents are normal as visualized. Sinuses and mastoids: The paranasal sinuses are clear. There are trace mastoid effusions. IMPRESSION: 1. There is no hemorrhage, mass effect, or evidence of acute territorial ischemia by CT criteria. 2. Unremarkable CT angiogram of the brain. 3. Unremarkable CT angiogram of the neck. ACT 112: Negative or not required by law. Electronically signed by: Robb Joe M.D. 12/07/2020 4:45 PM Neck CTA 12/07/20 16:[address] OF THE BRAIN; CT ANGIOGRAM OF THE BRAIN; CT ANGIOGRAM OF THE NECK CLINICAL HISTORY: Strokelike symptoms. COMPARISON STUDY: CT of the brain dated 05/31/2020. CT angiogram of the head and neck dated 05/27/2020. TECHNIQUE: Unenhanced axial CT scan of the brain is performed. Subsequently, following the IV administration of 120 of Optiray 320, CT angiogram of the head and neck was performed from the aortic arch to the vertex. Images are reviewed in the axial, sagittal, and coronal planes. 3-D MIPS images are created and assessed. IV contrast was administered without complication. All measurements were calculated based on NASCET criteria. A dose lowering technique was utilized adhering to the principles of ALARA. CT DOSE: 1213.59 mGy.cm FINDINGS: Brain parenchyma: There is age-related involutional change noting moderate subcortical and periventricular microangiopathic disease. A chronic lacunar infarct is noted in the left dunn radiata. There is no hemorrhage, mass effect, or evidence of acute territorial ischemia by CT criteria. There is no evidence of enhancing mass lesion on the angiogram phase images. The ventricles, sulci, and cisterns are prominent secondary to involutional change. Florian-white matter differentiation is preserved. No extra-axial fluid collection is seen. Thoracic aorta: There is atherosclerotic calcification of the thoracic aorta. Visualized portions of the thoracic aorta are normal in caliber. The aortic arch demonstrates standard 3-vessel anatomy. Right carotid arterial system: The right common carotid artery is widely patent, as are the right internal and external carotid arteries. Calcified plaque is noted in the carotid bulb and proximal internal carotid artery. Left carotid arterial system: The left common carotid artery is widely patent, as are the left internal and external carotid arteries. Mild plaque is noted in the carotid bulb. Vertebral arteries: The vertebral arteries are widely patent bilaterally and codominant. Subclavian arteries: Atherosclerotic plaque causes less than 50% luminal narrowing of the left subclavian artery below the thoracic outlet. The subclavian arteries are otherwise widely patent bilaterally. Intracranial vasculature: There is atherosclerotic calcification of the cavernous carotid and vertebral arteries. There is origin of the right posterior cerebral artery. The internal carotid arteries are patent at the skull base, as are the anterior and middle cerebral arteries bilaterally. The vertebrobasilar system and posterior cerebral arteries are widely patent. The vertebral arteries are codominant. There is no aneurysm, high-grade stenosis, or focal vessel cut off seen throughout the intracranial circulation. Jugular veins: Patent bilaterally. Dural sinuses: Patent. Lung apices: Partially visualized upper lobe lung parenchyma appears clear. Soft tissues: The visualized pharyngeal soft tissues are normal in appearance noting angiographic phase technique. The oropharyngeal airway appears widely patent. The salivary and thyroid glands are normal in appearance. No cervical lymphadenopathy is seen. Skeletal structures: The skeletal structures are osteopenic. The calvarium appears intact. The cervical spine is maintained noting multilevel spondylosis. No lytic or blastic lesion is seen. Compression deformities are seen in the upper thoracic spine. Orbits: The bony orbits are intact. Orbital contents are normal as visualized. Sinuses and mastoids: The paranasal sinuses are clear. There are trace mastoid effusions. IMPRESSION: 1. There is no hemorrhage, mass effect, or evidence of acute territorial ischemia by CT criteria. 2. Unremarkable CT angiogram of the brain. 3. Unremarkable CT angiogram of the neck. ACT 112: Negative or not required by law. Electronically signed by: Robb Joe M.D. 12/07/2020 4:45 PM Discharge Plan Visit Data Chief Complaint: Stroke Alert ED Provider: Jorge Luis Santa Discharge Problem: TIA (transient ischemic attack), Syncope Patient Disposition: Being Evaluated by Hospitalist Condition: Good Forms Stand Alone Forms: My [facility] Prescriptions Prescriptions: No Action atorvastatin 20 mg tablet 20 mg PO DAILY RF: 0 metoprolol succinate 100 mg tablet extended release 24 hr 100 mg PO DAILY RF: 0 aspirin 81 mg Tablet,Delayed Release (Dr/Ec) 81 mg PO DAILY RF: 0 galantamine 16 mg capsule,ext rel. pellets 24 hr 16 mg PO QAM RF: 0 cholecalciferol (vitamin D3) [Vitamin D3] 25 mcg (1,000 unit) Tablet 25 mcg PO DAILY RF: 0 memantine 28 mg Capsule,Sprinkle,Er 24hr 28 mg PO DAILY RF: 0 warfarin 3 mg tablet 3 mg PO DAILY Qty: 1 RF: 0 Referrals Referrals: Bibi Burris [Primary Care Provider] -
--- NOTE | 2020-12-07 16:47 | CT Scan Report ---
UNENHANCED CT OF THE BRAIN; CT ANGIOGRAM OF THE BRAIN; CT ANGIOGRAM OF THE NECK CLINICAL HISTORY: Strokelike symptoms. COMPARISON STUDY: CT of the brain dated 05/31/2020. CT angiogram of the head and neck dated 05/27/2020 . TECHNIQUE: Unenhanced axial CT scan of the brain is performed. Subsequently, following the IV adminis tration of 120 of Optir[address] 320, CT angiogram of the head and neck was performed from the aortic arch t o the vertex. Images are reviewed in the axial, sagittal, and coronal planes. 3-D MIPS images are cre ated and assessed. IV contrast was administered without complication. All measurements were calculate d based on NASCET criteria. A dose lowering technique was utilized adhering to the principles of ALA RA. CT DOSE: 1213.59 mGy.cm FINDINGS: Brain parenchyma: There is age-related involutional change noting moderate subcortical and periventri cular microangiopathic disease. A chronic lacunar infarct is noted in the left dunn radiata. There is no hemorrhage, mass effect, or evidence of acute territorial ischemia by CT criteria. There is no evidence of enhancing mass lesion on the angiogram phase images. The ventricles, sulci, and cisterns are prominent secondary to involutional change. Florian-white matter differentiation is preserved. No ex tra-axial fluid collection is seen. Thoracic aorta: There is atherosclerotic calcification of the thoracic aorta. Visualized portions of the thoracic aorta are normal in caliber. The aortic arch demonstrates standard 3-vessel anatomy. Right carotid arterial system: The right common carotid artery is widely patent, as are the right int ernal and external carotid arteries. Calcified plaque is noted in the carotid bulb and proximal inter nal carotid artery. 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 Mild plaque is noted in the carotid bulb. Vertebral arteries: The vertebral arteries are widely patent bilaterally and codominant. Subclavian arteries: Atherosclerotic plaque causes less than 50% luminal narrowing of the left subcla vian artery below the thoracic outlet. The subclavian arteries are otherwise widely patent bilaterall y. Intracranial vasculature: There is atherosclerotic calcification of the cavernous carotid and vertebr al arteries. There is origin of the right posterior cerebral artery. The internal carotid arter ies are patent at the skull base, as are the anterior and middle cerebral arteries bilaterally. The v ertebrobasilar system and posterior cerebral arteries are widely patent. The vertebral arteries are c odominant. There is no aneurysm, high-grade stenosis, or focal vessel cut off seen throughout the int racranial circulation. Jugular veins: Patent bilaterally. Dural sinuses: Patent. Lung apices: Partially visualized upper lobe lung parenchyma appears clear. Soft tissues: The visualized pharyngeal soft tissues are normal in appearance noting angiographic pha se technique. The oropharyngeal airway appears widely patent. The salivary and thyroid glands are nor mal in appearance. No cervical lymphadenopathy is seen. Skeletal structures: The skeletal structures are osteopenic. The calvarium appears intact. The cervic al spine is maintained noting multilevel spondylosis. No lytic or blastic lesion is seen. Compression deformities are seen in the upper thoracic spine. Orbits: The bony orbits are intact. Orbital contents are normal as visualized. Sinuses and mastoids: The paranasal sinuses are clear. There are trace mastoid effusions. IMPRESSION: 1. There is no hemorrhage, mass effect, or evidence of acute territorial ischemia by CT criteria. 2. Unremarkable CT angiogram of the brain. 3. Unremarkable CT angiogram of the neck. ACT 112: Negative or not required by law. Electronically signed by: Robb Joe M.D. 12/07/2020 4:45 PM
[2020-12-07] MEDS ORDERED: ACETAMINOPHEN 1000 MG/100 ML IV IV ONE (16:57)
[2020-12-07 17:04] LABS: Basophils # (auto) 0.01 K/uL (0-0.2); Basophils % (auto) 0.2 %; Eosinophils # (auto) 0.07 K/uL (0-0.5); Eosinophils % (auto) 1.1 %; Hemoglobin 12.2 g/dL (14.0-18.0); Immature Granulocytes # (auto) 0.03 K/uL (0.00-0.02); Immature Granulocytes % (auto) 0.5 %; Lymphocytes # (auto) 1.27 K/uL (1.2-3.4); Lymphocytes % (auto) 20.7 %; Mean Corpuscular Hemoglobin 32.4 pg (25-34); Mean Corpuscular Volume 98.1 fL (80-100); Mean Platelet Volume 11.9 fL (7.4-10.4); Monocytes # (auto) 0.67 K/uL (0.11-0.59); Monocytes % (auto) 10.9 %; Neutrophils # (auto) 4.09 K/uL (1.4-6.5); Neutrophils % (auto) 66.6 %; Platelet Count 184 K/uL (130-400); RDW Standard Deviation 46.7 fL (36.4-46.3); Red Blood Count 3.77 M/uL (4.7-6.1); White Blood Count 6.14 K/uL (4.8-10.8)
--- NOTE | 2020-12-07 17:06 | XRay Report ---
XR chest 1V portable CLINICAL HISTORY: Stroke Like Symptoms COMPARISON STUDY: No previous studies for comparison. FINDINGS: Lung volumes are normal. Lungs are clear. There is no pneumothorax or pleural effusion. Mil d cardiomegaly is noted. There are median sternotomy wires, mediastinal surgical clips and a left atr ial appendage occluder device. Mediastinal contours are normal. There is no evidence for pulmonary ed holly. IMPRESSION: No acute cardiopulmonary findings. ACT 112: Negative or not required by law. Electronically signed by: Anton Mendoza M.D. 12/07/2020 5:04 PM
[2020-12-07 17:19] LABS: INR 3.1 (0.9-1.1); Partial Thromboplastin Ratio 1.4; Partial Thromboplastin Time 36.5 Seconds (21.0-31.0); Prothrombin Time 28.7 Seconds (9.0-12.0)
[2020-12-07 17:31] LABS: Alanine Aminotransferase 25 U/L (12-78); Albumin Level 3.2 gm/dl (3.4-5.0); Aspartate Aminotransferase 21 U/L (15-37); BUN Creatinine Ratio 15.6 (10-20); Blood Urea Nitrogen 22 mg/dl (7-18); Calcium 8.4 mg/dl (8.5-10.1); Carbon Dioxide 27 mmol/L (21-32); Chloride 108 mmol/L (98-107); Creatinine Clr Calc Pharmacy 43.5 ml/min; Est GFR (African American) 51.1 ml/min; Est GFR (Non-African American) 44.1 ml/min; Glucose 121 mg/dl (70-99); Magnesium 2.3 mg/dl (1.8-2.4); Potassium 4.5 mmol/L (3.5-5.1); Sodium 138 mmol/L (136-145)
[2020-12-07 17:36] LABS: Alkaline Phosphatase 83 U/L (45-117); Bilirubin,Total 0.5 mg/dl (0.2-1); Globulin 3.3 gm/dl (2.5-4.0); Total Protein 6.5 gm/dl (6.4-8.2); Troponin I < 0.015 ng/ml (0-0.045)
[2020-12-07] MEDS ORDERED: hydrALAZINE HCL 20 MG/ML VIAL IV ONE (17:38)
--- NOTE | 2020-12-07 18:13 | History & Physical Report ---
Date of Service December 07, 2020 Assessment & Plan (1) Syncope: Plan: Question of CVA/TIA versus new onset seizure We will admit patient under stroke protocol CT/CT angiogram of head and neck all unremarkable on presentation We will check MRI Check 2D echo Will need speech eval prior to diet release Check EEG We will ask neurology to evaluate for further recommendations Patient is already on an aspirin a day along with full dose anticoagulation with warfarin (2) DVT (deep venous thrombosis): Plan: Patient has a previous history of DVT INR is 3.1 on presentation, will continue to follow (3) CKD (chronic kidney disease) stage 3, GFR 30-59 ml/min: Plan: Patient's creatinine is 1.42, mildly elevated from baseline We will give gentle IV hydration while patient is n.p.o. (4) HTN (hypertension): Plan: Patient is on Toprol 100 mg daily for blood pressure control Patient is currently hypertensive, will allow permissive hypertension for 24 hours per stroke protocol (5) Dyslipidemia: Plan: Patient is on atorvastatin 20 mg Check fasting lipids (6) Alzheimer disease: Plan: Medication shows of amantadine and glad amine, will continue both of these (7) Antiphospholipid antibody positive: Plan: Full dose anticoagulation as noted above (8) Paroxysmal atrial flutter: Plan: Currently rate controlled metoprolol, full dose anticoagulation as noted above (9) CAD, multiple vessel: Plan: Check fasting lipids, continue aspirin and atorvastatin as noted History of Present Illness Chief Complaint: Syncope Primary Care Provider: NO PCP This is an 85-year-old male with past medical history of previous CVA, Alzheimer's dementia, and paroxysmal atrial fibrillation on Coumadin that presents today after syncopal episode. Patient has dementia and significant aphasia, unfortunately could not provide much history. Per ER physician, patient lives at a personal [facility]. Was ambulating down the hallway with a friend when he sat down. He then apparently syncopized and fell to the ground. The friend went to find help and when he returned the patient was once again awake. However he was significantly aphasic and seemed very confused. Patient was brought to the emergency room for further evaluation by EMS. Patient's speech seemed to clear over his time the emergency room. No seizure activity was reported. The patient did mention headache to EMS but denied it to the ER physician as well as to myself. When I went to evaluate the patient, he is alert. He does have significant aphasia still which seems to cause some frustration. He has poor memory and cannot answer many questions about his previous admissions. He did not appear to be in any distress. He was hypertensive but other vital signs are stable. He had no focal neurological deficit outside of his speech. Patient is now being admitted for further work-up of a CVA/TIA versus new onset seizure. Allergies Allergy/AdvReac Type Severity Reaction Status Date / Time No Known Allergies Allergy Unverified 05/27/20 13:00 Home Medications Medication Instructions Recorded Confirmed Type aspirin 81 mg tablet,delayed 81 mg PO DAILY 05/27/20 05/27/20 History release atorvastatin 20 mg tablet 20 mg PO DAILY 05/27/20 05/27/20 History cholecalciferol (vitamin D3) 25 25 mcg PO DAILY 05/27/20 05/27/20 History mcg (1,000 unit) tablet (Vitamin D3) galantamine 16 mg 24 hr 16 mg PO QAM 05/27/20 05/27/20 History capsule,extended release memantine 28 mg capsule 28 mg PO DAILY 05/27/20 05/27/20 History sprinkle,extended release 24hr metoprolol succinate 100 mg 100 mg PO DAILY 05/27/20 05/27/20 History tablet,extended release 24 hr warfarin 3 mg tablet 3 mg PO DAILY #1 tab 06/01/20 Rx Past Med/Surg History Medical History Alzheimer's dementia Antiphospholipid antibody positive CAD, multiple vessel Chronic venous insufficiency DVT (deep venous thrombosis) Dyslipidemia GERD (gastroesophageal reflux disease) HTN (hypertension) Paroxysmal atrial fibrillation Paroxysmal atrial flutter Surgical History H/O Spinal surgery 1963 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 Physical Exam Constitutional: cooperative; no acute distress Neck: trachea midline, no thyromegaly Respiratory: normal respiratory effort Auscultation: + diminished lung sounds; no crackles, no rales, no rhonchi and no wheezes Cardiovascular: Rate/Rhythm: regular rate and regular rhythm Heart Sounds: normal S1 and normal S2 Gastrointestinal (Abdomen): Inspection/Auscultation: abdomen normal to inspection Percussion/Palpation: abdomen soft; abdomen nontender, no guarding, abdomen not rigid and no hepatosplenomegaly Skin: no rashes, warm and dry Neurologic: Speech / Cognition: + expressive aphasia Motor/Sensory: + tremor; no fasciculations Cranial Nerves: EOM intact bilaterally, able to elevate shoulders bilaterally and no nystagmus Results & Data Results & Data ([facility]) Vital Signs (Past 12 Hours) Vital Signs Temp Pulse Resp BP Pulse Ox 12/07/20 17:45 83 20 185/99 H 97 12/07/20 17:30 66 21 194/87 H 96 12/07/20 17:16 64 18 174/78 H 98 12/07/20 17:01 65 18 189/89 H 97 12/07/20 16:39 69 14 211/89 H 96 12/07/20 16:35 36.6 C 70 21 211/89 H 100 Laboratory Results Laboratory Results WBC 6.14 K/uL (4.8-10.8) 12/07/20 16:52 RBC 3.77 M/uL (4.7-6.1) L 12/07/20 16:52 Hgb 12.2 g/dL (14.0-18.0) L 12/07/20 16:52 Hct 37.0 % (42-52) L 12/07/20 16:52 MCV 98.1 fL (80-100) 12/07/20 16:52 MCH 32.4 pg (25-34) 12/07/20 16:52 MCHC 33.0 g/dL (32-36) 12/07/20 16:52 RDW Std Deviation 46.7 fL (36.4-46.3) H 12/07/20 16:52 RDW Coeff of Lety 13.0 % (11.5-14.5) 12/07/20 16:52 Plt Count 184 K/uL (130-400) 12/07/20 16:52 MPV 11.9 fL (7.4-10.4) H 12/07/20 16:52 Immature Gran % (Auto) 0.5 % 12/07/20 16:52 Neut % (Auto) 66.6 % 12/07/20 16:52 Lymph % (Auto) 20.7 % 12/07/20 16:52 [place] % (Auto) 10.9 % 12/07/20 16:52 Eos % (Auto) 1.1 % 12/07/20 16:52 Baso % (Auto) 0.2 % 12/07/20 16:52 Neut # (Auto) 4.09 K/uL (1.4-6.5) 12/07/20 16:52 Lymph # (Auto) 1.27 K/uL (1.2-3.4) 12/07/20 16:52 [place] # (Auto) 0.67 K/uL (0.11-0.59) H 12/07/20 16:52 Eos # (Auto) 0.07 K/uL (0-0.5) 12/07/20 16:52 Baso # (Auto) 0.01 K/uL (0-0.2) 12/07/20 16:52 Immature Gran # (Auto) 0.03 K/uL (0.00-0.02) H 12/07/20 16:52 PT 28.7 Seconds (9.0-12.0) H 12/07/20 16:52 INR 3.1 (0.9-1.1) H 12/07/20 16:52 APTT 36.5 Seconds (21.0-31.0) H 12/07/20 16:52 PTT Ratio 1.4 12/07/20 16:52 Sodium 138 mmol/L (136-145) 12/07/20 16:52 Potassium 4.5 mmol/L (3.5-5.1) 12/07/20 16:52 Chloride 108 mmol/L (98-107) H 12/07/20 16:52 Carbon Dioxide 27 mmol/L (21-32) 12/07/20 16:52 Anion Gap 3.0 (3-11) 12/07/20 16:52 BUN 22 mg/dl (7-18) H 12/07/20 16:52 Creatinine 1.42 mg/dl (0.6-1.4) H 12/07/20 16:52 Est Cr Clr Drug Dosing 43.5 ml/min 12/07/20 16:52 Est GFR ( Amer) 51.1 ml/min 12/07/20 16:52 Est GFR (Non-Af Amer) 44.1 ml/min 12/07/20 16:52 BUN/Creatinine Ratio 15.6 (10-20) 12/07/20 16:52 Glucose 121 mg/dl (70-99) H 12/07/20 16:52 POC Glucose 130 mg/dl (70-99) H 12/07/20 16:37 Calcium 8.4 mg/dl (8.5-10.1) L 12/07/20 16:52 Magnesium 2.3 mg/dl (1.8-2.4) 12/07/20 16:52 Total Bilirubin 0.5 mg/dl (0.2-1) 12/07/20 16:52 AST 21 U/L (15-37) 12/07/20 16:52 ALT 25 U/L (12-78) 12/07/20 16:52 Alkaline Phosphatase 83 U/L (45-117) 12/07/20 16:52 Troponin I < 0.015 ng/ml (0-0.045) 12/07/20 16:52 Total Protein 6.5 gm/dl (6.4-8.2) 12/07/20 16:52 Albumin 3.2 gm/dl (3.4-5.0) L 12/07/20 16:52 Globulin 3.3 gm/dl (2.5-4.0) 12/07/20 16:52 Albumin/Globulin Ratio 1.0 (0.9-2) 12/07/20 16:52 Prolactin 16.20 ng/ml 12/07/20 16:53 COVID-19 Eval Order Covid19 at [facility] 12/07/20 16:45 SARS-CoV-2 (PCR) NEGATIVE (Negative) 12/07/20 16:45 Impressions Chest X-Ray 12/07/20 16:23 XR chest 1V portable CLINICAL HISTORY: Stroke Like Symptoms COMPARISON STUDY: No previous studies for comparison. FINDINGS: Lung volumes are normal. Lungs are clear. There is no pneumothorax or pleural effusion. Mild cardiomegaly is noted. There are median sternotomy wires, mediastinal surgical clips and a left atrial appendage occluder device. Mediastinal contours are normal. There is no evidence for pulmonary edema. IMPRESSION: No acute cardiopulmonary findings. ACT 112: Negative or not required by law. Electronically signed by: Anton Mendoza M.D. 12/07/2020 5:[address] 12/07/20 16:[address] OF THE BRAIN; CT ANGIOGRAM OF THE BRAIN; CT ANGIOGRAM OF THE NECK CLINICAL HISTORY: Strokelike symptoms. COMPARISON STUDY: CT of the brain dated 05/31/2020. CT angiogram of the head and neck dated 05/27/2020. TECHNIQUE: Unenhanced axial CT scan of the brain is performed. Subsequently, following the IV administration of 120 of Optiray 320, CT angiogram of the head and neck was performed from the aortic arch to the vertex. Images are reviewed in the axial, sagittal, and coronal planes. 3-D MIPS images are created and assessed. IV contrast was administered without complication. All measurements were calculated based on NASCET criteria. A dose lowering technique was utilized adhering to the principles of ALARA. CT DOSE: 1213.59 mGy.cm FINDINGS: Brain parenchyma: There is age-related involutional change noting moderate subcortical and periventricular microangiopathic disease. A chronic lacunar infarct is noted in the left dunn radiata. There is no hemorrhage, mass effect, or evidence of acute territorial ischemia by CT criteria. There is no evidence of enhancing mass lesion on the angiogram phase images. The ventricles, sulci, and cisterns are prominent secondary to involutional change. Florian-white matter differentiation is preserved. No extra-axial fluid collection is seen. Thoracic aorta: There is atherosclerotic calcification of the thoracic aorta. Visualized portions of the thoracic aorta are normal in caliber. The aortic arch demonstrates standard 3-vessel anatomy. Right carotid arterial system: The right common carotid artery is widely patent, as are the right internal and external carotid arteries. Calcified plaque is noted in the carotid bulb and proximal internal carotid artery. Left carotid arterial system: The left common carotid artery is widely patent, as are the left internal and external carotid arteries. Mild plaque is noted in the carotid bulb. Vertebral arteries: The vertebral arteries are widely patent bilaterally and codominant. Subclavian arteries: Atherosclerotic plaque causes less than 50% luminal narrowing of the left subclavian artery below the thoracic outlet. The subclavian arteries are otherwise widely patent bilaterally. Intracranial vasculature: There is atherosclerotic calcification of the cavernous carotid and vertebral arteries. There is origin of the right posterior cerebral artery. The internal carotid arteries are patent at the skull base, as are the anterior and middle cerebral arteries bilaterally. The vertebrobasilar system and posterior cerebral arteries are widely patent. The vertebral arteries are codominant. There is no aneurysm, high-grade stenosis, or focal vessel cut off seen throughout the intracranial circulation. Jugular veins: Patent bilaterally. Dural sinuses: Patent. Lung apices: Partially visualized upper lobe lung parenchyma appears clear. Soft tissues: The visualized pharyngeal soft tissues are normal in appearance noting angiographic phase technique. The oropharyngeal airway appears widely patent. The salivary and thyroid glands are normal in appearance. No cervical lymphadenopathy is seen. Skeletal structures: The skeletal structures are osteopenic. The calvarium appears intact. The cervical spine is maintained noting multilevel spondylosis. No lytic or blastic lesion is seen. Compression deformities are seen in the upper thoracic spine. Orbits: The bony orbits are intact. Orbital contents are normal as visualized. Sinuses and mastoids: The paranasal sinuses are clear. There are trace mastoid effusions. IMPRESSION: 1. There is no hemorrhage, mass effect, or evidence of acute territorial ischemia by CT criteria. 2. Unremarkable CT angiogram of the brain. 3. Unremarkable CT angiogram of the neck. ACT 112: Negative or not required by law. Electronically signed by: Robb Joe M.D. 12/07/2020 4:45 PM Head CTA 12/07/20 16:[address] OF THE BRAIN; CT ANGIOGRAM OF THE BRAIN; CT ANGIOGRAM OF THE NECK CLINICAL HISTORY: Strokelike symptoms. COMPARISON STUDY: CT of the brain dated 05/31/2020. CT angiogram of the head and neck dated 05/27/2020. TECHNIQUE: Unenhanced axial CT scan of the brain is performed. Subsequently, following the IV administration of 120 of Optiray 320, CT angiogram of the head and neck was performed from the aortic arch to the vertex. Images are reviewed in the axial, sagittal, and coronal planes. 3-D MIPS images are created and assessed. IV contrast was administered without complication. All measurements were calculated based on NASCET criteria. A dose lowering technique was utilized adhering to the principles of ALARA. CT DOSE: 1213.59 mGy.cm FINDINGS: Brain parenchyma: There is age-related involutional change noting moderate subcortical and periventricular microangiopathic disease. A chronic lacunar infarct is noted in the left dunn radiata. There is no hemorrhage, mass effect, or evidence of acute territorial ischemia by CT criteria. There is no evidence of enhancing mass lesion on the angiogram phase images. The ventricles, sulci, and cisterns are prominent secondary to involutional change. Florian-white matter differentiation is preserved. No extra-axial fluid collection is seen. Thoracic aorta: There is atherosclerotic calcification of the thoracic aorta. Visualized portions of the thoracic aorta are normal in caliber. The aortic arch demonstrates standard 3-vessel anatomy. Right carotid arterial system: The right common carotid artery is widely patent, as are the right internal and external carotid arteries. Calcified plaque is noted in the carotid bulb and proximal internal carotid artery. Left carotid arterial system: The left common carotid artery is widely patent, as are the left internal and external carotid arteries. Mild plaque is noted in the carotid bulb. Vertebral arteries: The vertebral arteries are widely patent bilaterally and codominant. Subclavian arteries: Atherosclerotic plaque causes less than 50% luminal narrowing of the left subclavian artery below the thoracic outlet. The subc lavian arteries are otherwise widely patent bilaterally. Intracranial vasculature: There is atherosclerotic calcification of the cavernous carotid and vertebral arteries. There is origin of the right posterior cerebral artery. The internal carotid arteries are patent at the skull base, as are the anterior and middle cerebral arteries bilaterally. The vertebrobasilar system and posterior cerebral arteries are widely patent. The vertebral arteries are codominant. There is no aneurysm, high-grade stenosis, or focal vessel cut off seen throughout the intracranial circulation. Jugular veins: Patent bilaterally. Dural sinuses: Patent. Lung apices: Partially visualized upper lobe lung parenchyma appears clear. Soft tissues: The visualized pharyngeal soft tissues are normal in appearance noting angiographic phase technique. The oropharyngeal airway appears widely patent. The salivary and thyroid glands are normal in appearance. No cervical lymphadenopathy is seen. Skeletal structures: The skeletal structures are osteopenic. The calvarium appears intact. The cervical spine is maintained noting multilevel spondylosis. No lytic or blastic lesion is seen. Compression deformities are seen in the upper thoracic spine. Orbits: The bony orbits are intact. Orbital contents are normal as visualized. Sinuses and mastoids: The paranasal sinuses are clear. There are trace mastoid effusions. IMPRESSION: 1. There is no hemorrhage, mass effect, or evidence of acute territorial ischemia by CT criteria. 2. Unremarkable CT angiogram of the brain. 3. Unremarkable CT angiogram of the neck. ACT 112: Negative or not required by law. Electronically signed by: Robb Joe M.D. 12/07/2020 4:45 PM Neck CTA 12/07/20 16:[address] OF THE BRAIN; CT ANGIOGRAM OF THE BRAIN; CT ANGIOGRAM OF THE NECK CLINICAL HISTORY: Strokelike symptoms. COMPARISON STUDY: CT of the brain dated 05/31/2020. CT angiogram of the head and neck dated 05/27/2020. TECHNIQUE: Unenhanced axial CT scan of the brain is performed. Subsequently, following the IV administration of 120 of Optiray 320, CT angiogram of the head and neck was performed from the aortic arch to the vertex. Images are reviewed in the axial, sagittal, and coronal planes. 3-D MIPS images are created and assessed. IV contrast was administered without complication. All measurements were calculated based on NASCET criteria. A dose lowering technique was utilized adhering to the principles of ALARA. CT DOSE: 1213.59 mGy.cm FINDINGS: Brain parenchyma: There is age-related involutional change noting moderate subcortical and periventricular microangiopathic disease. A chronic lacunar infarct is noted in the left dunn radiata. There is no hemorrhage, mass effect, or evidence of acute territorial ischemia by CT criteria. There is no evidence of enhancing mass lesion on the angiogram phase images. The ventricles, sulci, and cisterns are prominent secondary to involutional change. Florian-white matter differentiation is preserved. No extra-axial fluid collection is seen. Thoracic aorta: There is atherosclerotic calcification of the thoracic aorta. Visualized portions of the thoracic aorta are normal in caliber. The aortic arch demonstrates standard 3-vessel anatomy. Right carotid arterial system: The right common carotid artery is widely patent, as are the right internal and external carotid arteries. Calcified plaque is noted in the carotid bulb and proximal internal carotid artery. Left carotid arterial system: The left common carotid artery is widely patent, as are the left internal and external carotid arteries. Mild plaque is noted in the carotid bulb. Vertebral arteries: The vertebral arteries are widely patent bilaterally and codominant. Subclavian arteries: Atherosclerotic plaque causes less than 50% luminal narrowing of the left subclavian artery below the thoracic outlet. The subclavian arteries are otherwise widely patent bilaterally. Intracranial vasculature: There is atherosclerotic calcification of the cavernous carotid and vertebral arteries. There is origin of the right posterior cerebral artery. The internal carotid arteries are patent at the skull base, as are the anterior and middle cerebral arteries bilaterally. The vertebrobasilar system and posterior cerebral arteries are widely patent. The vertebral arteries are codominant. There is no aneurysm, high-grade stenosis, or focal vessel cut off seen throughout the intracranial circulation. Jugular veins: Patent bilaterally. Dural sinuses: Patent. Lung apices: Partially visualized upper lobe lung parenchyma appears clear. Soft tissues: The visualized pharyngeal soft tissues are normal in appearance noting angiographic phase technique. The oropharyngeal airway appears widely patent. The salivary and thyroid glands are normal in appearance. No cervical lymphadenopathy is seen. Skeletal structures: The skeletal structures are osteopenic. The calvarium appears intact. The cervical spine is maintained noting multilevel spondylosis. No lytic or blastic lesion is seen. Compression deformities are seen in the upper thoracic spine. Orbits: The bony orbits are intact. Orbital contents are normal as visualized. Sinuses and mastoids: The paranasal sinuses are clear. There are trace mastoid effusions. IMPRESSION: 1. There is no hemorrhage, mass effect, or evidence of acute territorial ischemia by CT criteria. 2. Unremarkable CT angiogram of the brain. 3. Unremarkable CT angiogram of the neck. ACT 112: Negative or not required by law. Electronically signed by: Robb Joe M.D. 12/07/2020 4:45 PM PG Care Time/CCT Total # of Minutes Spent Total Time Spent with Patient: Total time spent is greater than 50% in coordination of care (as documented) at patient's floor/unit and/or counseling patient: Coding Level of Care Code 20081 Initial Inpt Care Lvl 3 Diagnoses Syncope R55 Syncope type: unspecified DVT (deep venous thrombosis) I82.409 CKD (chronic kidney disease) stage 3, GFR 30-59 ml/min N18.30 HTN (hypertension) I10 Dyslipidemia E78.5 Alzheimer disease G30.9; F02.80 Antiphospholipid antibody positive R76.0 Paroxysmal atrial flutter I48.92 CAD, multiple vessel I25.10 (1) Syncope Syncope type: unspecified Qualified Code(s): R55 - Syncope and collapse
[2020-12-07] MEDS ORDERED: PHARMACIST DISCHARGE MED REC CONSULT PRN (21:18)
[2020-12-07] MEDS ORDERED: WARFARIN SOD 3 MG TAB PO SCH (21:18)
[2020-12-07] MEDS: SODIUM CHLORIDE 0.9% 1000ML 1,000 ML IV SCH (22:22)
--- NOTE | 2020-12-07 23:14 | Communication Note ---
Date of Service: December 07, 2020 Night MD made aware that patient failed dysphagia screen this evening and consequently cannot take PO meds. Patient's antihypertensives are held until AM to allow for permissive hypertension, but patient was due to receive a dose of warfarin tonight. INR this evening was supratherapeutic at 3.1 and so it is acceptable for patient to go without tonight's warfarin dose. Resident Activity Tracking Resident Involvement: Resident Care Provided Care Provided: Adult [facility]
[2020-12-08] MEDS ORDERED: hydrALAZINE HCL 20 MG/ML VIAL IV PRN (07:59)
[2020-12-08] MEDS: SODIUM CHLORIDE 0.9% 1000ML 1,000 ML IV SCH (08:09)
--- NOTE | 2020-12-08 08:42 | Neurology Consultation ---
Date of Consultation December 08, 2020 Assessment & Plan (1) Syncope: (2) H/O: stroke with residual effects: (3) Alzheimer disease: Patient's presentation seems most consistent with a brief syncopal episode. No observed seizure activity. Patient does have a history of a chronic left basal ganglia infarct which has resulted in some residual aphasia which is superimposed on a history of Alzheimer's dementia. I suspect that he is currently at his baseline. Brain MRI completed overnight appears to be negative for acute or subacute infarct per my review. Follow-up with official radiology report when available. I doubt he had a seizure. An EEG has been ordered. I will review this test when completed later today. He has been notably hypertensive during this hospitalization, continue medical management. Stroke risk factors for this patient include atrial fibrillation, on anticoa gulation, history of positive antiphospholipid antibody, and hypertension. Would continue with warfarin, daily low-dose aspirin, and atorvastatin. Would reduce dosage of galantamine ER to 8 mg/day as cholinesterase inhibitors may increase risk for syncope due to vagotonic effects. Cholinesterase inhibitors may also increase risk for seizures. Continue memantine XR 28 mg/day. Would not start an anticonvulsant at this time. Follow-up with results of EEG. Consider mobile cardiac outpatient telemetry and/or cardiology consultation. History of Present Illness Reason for Consultation: CVA? Requesting Physician: Roman Munguia DO Attending Physician: Omar Diaz MD History of Present Illness The patient is an 85-year-old male care home resident who was walking with a friend when he had a syncopal episode characterized by collapse/fall to the ground, no associated convulsive activity, confused afterwards. No obvious injuries. Past medical history notable for an acute left basal ganglia stroke occurring this past May, evaluated by Dr. Latif, presenting with dysarthria and gait difficulty at that time. The patient was notably hypertensive at the time of this recent presentation. He was treated with intravenous antihypertensive medication and his symptoms were felt to have significantly improved. He was not considered an appropriate TPA candidate. He did have a CT angiogram of the head and neck that revealed a chronic lacunar infarct within the left basal ganglia/dunn radiata, no hemorrhage or acute process, no significant vascular lesion. Patient did have a follow-up brain MRI completed as well. I did independently review the images of this test. Diffusion-weighted imaging negative for acute or subacute infarct. There is a chronic left basal ganglia lacunar infarct as also identified on CT of the head. There is evidence of generalized atrophy and chronic small vessel ischemic disease. The radiologist's interpretation of this test is pending at this time. The patient continues to have some difficulty with mild aphasia that I suspect is chronic and related to his previous stroke. Past medical history is also notable for Alzheimer's dementia for which she is prescribed galantamine and memantine. His incomplete aphasia and dementia render him an unreliable historian. Past medical history is also notable for atrial fibrillation for which he is prescribed warfarin as well as a history of positive antiphospholipid antibody. He also takes daily low-dose aspirin and atorvastatin as an outpatient. Allergies Allergy/AdvReac Type Severity Reaction Status Date / Time dextran 40 Allergy Unknown Verified 12/07/20 19:08 rivastigmine [From Exelon] Allergy Unknown Verified 12/07/20 19:08 Home Medications Medication Instructions Recorded Confirmed Type aspirin 81 mg tablet,delayed 81 mg PO DAILY 05/27/20 12/07/20 History release atorvastatin 20 mg tablet 20 mg PO DAILY 05/27/20 12/07/20 History galantamine 16 mg 24 hr 16 mg PO QAM 05/27/20 12/07/20 History capsule,extended release memantine 28 mg capsule 28 mg PO DAILY 05/27/20 12/07/20 History sprinkle,extended release 24hr acetaminophen 325 mg tablet 650 mg PO Q4 PRN 12/07/20 12/07/20 History (Tylenol) cholecalciferol (vitamin D3) 25 25 mcg PO DAILY 12/07/20 12/07/20 History mcg (1,000 unit) tablet (Vitamin D3) metoprolol tartrate 100 mg tablet 100 mg PO DAILY 12/07/20 12/07/20 History nystatin 100,000 unit/gram topical 1 applic TOPICAL BID 12/07/20 12/07/20 History cream sennosides 8.6 mg-docusate sodium 2 tab-cap PO BID 12/07/20 12/07/20 History 50 mg tablet (Senna-S) warfarin 2.5 mg tablet 2.5 mg PO DAILY 12/07/20 12/07/20 History Patient History Medical History Alzheimer's dementia Antiphospholipid antibody positive CAD, multiple vessel Chronic venous insufficiency DVT (deep venous thrombosis) Dyslipidemia GERD (gastroesophageal reflux disease) HTN (hypertension) Paroxysmal atrial fibrillation Paroxysmal atrial flutter Surgical History H/O Spinal surgery 1963 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 Feels Safe at Home: Yes Physical Activity Frequency: 1-2 Times per Week Physical Activity Frequency Comment: Walks Assistive Devices: None Review of Systems Review of Systems: Unobtainable due to cognitive status Exam (Neuro) Constitutional: well developed and well nourished; no acute distress Eyes: normal visual chavez by confrontation, PERRL, normal accommodation and EOM intact bilaterally; no fundoscopic abnormality, no nystagmus and no papilledema Cardiovascular: Vessels: normal carotid upstroke; no carotid bruit Neurologic: Oriented to:: Person; negative Place or Time Memory: negative Short Term Intact or Remote Intact Attention: Span Intact; negative Concentration Intact Language: negative Naming Objects (mild difficulty) or Repeating Phrases (mild difficulty) Speech Fluency: Dysarthria and Dysfluency Speech Aphasia: Aphasia (incomplete, mixed) Fund of Knowledge: Vocabulary (confused); negative Current Events or Past History Cranial Nerves: Normal II (Visual chavez full to confrontation, visual acuity normal), III, IV, (Pupils equal round reactive to light and accommodation, eye movements normal), V (F acial sensation intact), VIII (Hearing intact), IX, X (Palate elevates to midline), XI (Shoulder shrug intact) and XII (Tongue protrudes to midline); Abnorm VII (flattening right nsolabial fold) Motor Strength: Normal Lower Extremities and Normal Upper Extremities; negative Pronator Drift Motor Tone: Normal Lower Extremities and Normal Upper Extremities Muscle Bulk/Involuntary Movements: No Involuntary Movements; negative Muscle Atrophy Sensation: Light Touch Intact, Pain/Temperature Intact, Vibration Intact and Proprioception Intact Coordination: Normal, Limited Balance, Finger-Nose Abnormal Laterality: Right and Heel-Vital Abnormal Laterality: Right; negative Dysdiadochokinesia Deep Tendon Reflexes: Rt Triceps: 3+, Lt Triceps: 2+, Rt Biceps: 3+, Lt Biceps: 2+, Rt Brachioradialis: 3+, Lt Brachioradialis: 2+, Rt Patellar: 3+, Lt Patellar: 2+, Rt Ankle: 2+ and Lt Ankle: 1+ Special Tests: Babinski Present (right) Details: Gait cannot be safely tested in the context of patient's current neurological status. Results & Data ([facility]) Vital Signs (Past 12 Hours) Vital Signs Temp Pulse Pulse Pulse Resp BP Pulse Ox 12/08/20 07:59 36.4 C L 112 H 19 200/113 H 94 12/08/20 03:02 36.8 C 65 19 181/79 H 93 12/07/20 23:26 36.6 C 73 20 185/72 H 92 12/07/20 22:20 80 12/07/20 21:31 69 12/07/20 21:25 69 173/73 H 12/07/20 21:04 36.8 C 70 18 198/82 H 92 12/07/20 20:58 86 20 96 Laboratory Results WBC 6.14, hemoglobin 12.2, hematocrit 37.0, platelet count 184, INR 3.1, sodium 138, potassium 4.5, BUN 22, creatinine 1.42, glucose 121, troponin less than 0.015, lipid panel from April 2020: Triglycerides 73, cholesterol 129, LDL 52, VLDL 15, HDL 62, prolactin level yesterday 16.[address] of the head, CT angiography of the head and neck, and brain MRI are as described in the history of present illness. I also reviewed the brain MRI completed this past May that revealed an acute left basal ganglia infarct at that time. Electrocardiogram revealed a normal sinus rhythm, 71 bpm. An echocardiogram completed this past May revealed a normal left ventricular size and systolic function, estimated EF 60 to 65%, possible hypokinesis of the inferolateral wall, mild concentric left ventricular hypertrophy, mild biatrial dilation, no evidence of atrial septal defect. Coding Level of Care Code 55253 Initial Inpt Care Lvl 3 Diagnoses Syncope R55 Syncope type: unspecified H/O: stroke with residual effects I69.30 Alzheimer disease G30.9; F02.80 (1) Syncope Syncope type: unspecified Qualified Code(s): R55 - Syncope and collapse
[2020-12-08] MEDS ORDERED: ASPIRIN 81 MG ECTAB PO SCH (09:00)
[2020-12-08] MEDS ORDERED: METOPROLOL SUCC 50MG EXT REL TAB PO SCH (09:00)
[2020-12-08 09:24] LABS: Basophils # (auto) 0.01 K/uL (0-0.2); Basophils % (auto) 0.1 %; Eosinophils # (auto) 0.04 K/uL (0-0.5); Eosinophils % (auto) 0.6 %; Hematocrit (blood only) 39.2 % (42-52); Hemoglobin 13.1 g/dL (14.0-18.0); Immature Granulocytes # (auto) 0.03 K/uL (0.00-0.02); Immature Granulocytes % (auto) 0.4 %; Lymphocytes # (auto) 1.09 K/uL (1.2-3.4); Lymphocytes % (auto) 15.9 %; Mean Corpuscular Hemoglobin 32.3 pg (25-34); Mean Corpuscular Hgb Conc 33.4 g/dL (32-36); Mean Corpuscular Volume 96.8 fL (80-100); Monocytes # (auto) 0.76 K/uL (0.11-0.59); Monocytes % (auto) 11.1 %; Neutrophils # (auto) 4.94 K/uL (1.4-6.5); Neutrophils % (auto) 71.9 %; Platelet Count 203 K/uL (130-400); RDW Standard Deviation 45.8 fL (36.4-46.3); Red Blood Count 4.05 M/uL (4.7-6.1); White Blood Count 6.87 K/uL (4.8-10.8)
[2020-12-08 09:36] LABS: Estimated Average Glucose 131 mg/dl; Hemoglobin A1C 6.2 % (4.5-5.6)
[2020-12-08 09:56] LABS: INR 2.2 (0.9-1.1); Prothrombin Time 20.9 Seconds (9.0-12.0)
[2020-12-08 10:27] LABS: Calcium 8.9 mg/dl (8.5-10.1); Creatinine Clr Calc Pharmacy 49.7 ml/min; Est GFR (African American) 65.9 ml/min; Est GFR (Non-African American) 56.9 ml/min; Magnesium 2.2 mg/dl (1.8-2.4); Potassium 3.8 mmol/L (3.5-5.1)
--- NOTE | 2020-12-08 11:02 | Electroencephalogram ---
EEG Procedure Note Date of Service December 08, 2020 Start / End Times Start Time: 10:35 AM End Time: 10:55 AM Referring Physician Roman Munguia DO History Syncope, evaluate for possible seizure Home Medication List Medication Instructions Recorded Confirmed Type aspirin 81 mg tablet,delayed 81 mg PO DAILY 05/27/20 12/07/20 History release atorvastatin 20 mg tablet 20 mg PO DAILY 05/27/20 12/07/20 History galantamine 16 mg 24 hr 16 mg PO QAM 05/27/20 12/07/20 History capsule,extended release memantine 28 mg capsule 28 mg PO DAILY 05/27/20 12/07/20 History sprinkle,extended release 24hr acetaminophen 325 mg tablet 650 mg PO Q4 PRN 12/07/20 12/07/20 History (Tylenol) cholecalciferol (vitamin D3) 25 25 mcg PO DAILY 12/07/20 12/07/20 History mcg (1,000 unit) tablet (Vitamin D3) metoprolol tartrate 100 mg tablet 100 mg PO DAILY 12/07/20 12/07/20 History nystatin 100,000 unit/gram topical 1 applic TOPICAL BID 12/07/20 12/07/20 History cream sennosides 8.6 mg-docusate sodium 2 tab-cap PO BID 12/07/20 12/07/20 History 50 mg tablet (Senna-S) warfarin 2.5 mg tablet 2.5 mg PO DAILY 12/07/20 12/07/20 History Inpatient Medication List Hydralazine HCl (Hydralazine Hcl 20 Mg/Ml Vial) 10 mg IV Q3H PRN PRN Reason: SBP > 190 or DBP > 110 Stop: 01/07/21 07:59 Last Admin: 12/08/20 08:13 Dose: 10 mg Documented by: [id number] Sodium Chloride (Nss 1000ml) 1,000 mls @ 100 mls/hr IV .Q10H GARRET Stop: 01/06/21 21:17 Last Admin: 12/08/20 08:09 Dose: 100 mls/hr Documented by: [id number] Infusion: 12/08/20 08:09 Dose: 100 mls/hr Documented by: [id number] Admin: 12/07/20 22:22 Dose: 100 mls/hr Documented by: [id number] Warfarin Sodium (Warfarin Sod 3 Mg Tab) 3 mg PO HS GARRET Stop: 01/06/21 21:17 Last Admin: 12/07/20 23:31 Dose: Not Given Documented by: [id number] Discontinued Medications Acetaminophen (Acetaminophen 1000 Mg/100 Ml Iv) 1,000 mg IV ONE ONE Stop: 12/07/20 16:58 Last Admin: 12/07/20 17:45 Dose: 1,000 mg Documented by: [id number] Hydralazine HCl (Hydralazine Hcl 20 Mg/Ml Vial) 5 mg IV NOW ONE Stop: 12/07/20 17:39 Last Admin: 12/07/20 17:48 Dose: 5 mg Documented by: [id number] Ioversol (Optiray 320 125ml) 120 ml IV ONCE ONE Stop: 12/07/20 16:34 Last Admin: 12/07/20 16:33 Dose: 120 ml Documented by: [id number] Description This is a 21 electrode EEG with a single channel dedicated to limited EKG. The electrodes were placed in accordance with the International 10-20 system. There is a posterior dominant rhythm of 10 Hz which is symmetrically distributed and attenuates with eye opening. There is a normal anterior to posterior organization. Photic stimulation is unremarkable. Hyperventilation is not performed. There is considerable movement artifact throughout the study. There is a symmetric frontal beta rhythm. There is no focal or lateralized slowing. No epileptiform abnormalities observed. No changes suggestive of sleep. Interpretation Normal-appearing awake/drowsy EEG. Technically limited due to excessive patient movement artifact. A normal EEG does not completely exclude a diagnosis of epilepsy. Further clinical correlation may be needed. [facility] EEG Procedure Codes Indication for Procedure (1) Syncope: (2) Seizure-like activity: Neurology Neurology: [id number] EEG include record awake & drowsy
[2020-12-08] MEDS ORDERED: STROKE PATIENT DISCHARGE STA (13:11)
--- NOTE | 2020-12-08 13:58 | Magnetic Resonance Report ---
MRI OF THE BRAIN WITHOUT CONTRAST CLINICAL HISTORY: cva COMPARISON STUDY: May 27, 2020 FINDINGS: Sagittal T1, axial diffusion, proton density and T2 weighted axial, coronal FLAIR, and axial T1-weigh brayden images were acquired. No intra or extra-axial mass lesions are visualized Axial diffusion-weighted images reveal no evidence of acute or subacute infarction. Linear area of hi gh double utilized and low ACD map signal within left inferior temporal lobe is most likely artifactu al due to motion. Previously seen large area of restricted diffusion within left basal ganglia now show large lacunar i nfarct. Diffuse atrophic changes of brain parenchyma are again seen and associated with mild ex vacuo dilatat ion of ventricles. Proton density T2-weighted and FLAIR images reveal scattered foci of increased T2 signal within the w amadou matter, likely on a small vessel basis. There are no abnormal flow voids. IMPRESSION: No acute intracranial hemorrhage, no midline shift or space occupying lesions. No areas of restricted diffusion to suggest acute ischemia/infarct. Small linear area of high DWI and low ACD map signal within inferior left temporal lobe is most likely artifactual. Large lacunar infarct within left basal ganglia. Chronic small vessel ischemia and atrophic changes of brain parenchyma. ACT 112: Negative or not required by law. The above report was generated using voice recognition software. It may contain grammatical, syntax o r spelling errors. Electronically signed by: Razia Mckeon DO 12/08/2020 1:57 PM
--- NOTE | 2020-12-08 18:03 | Discharge Summary ---
Date of Service December 08, 2020 Admission HPI Per Admitting Provider This is an 85-year-old male with past medical history of previous CVA, Alzheimer's dementia, and paroxysmal atrial fibrillation on Coumadin that presents today after syncopal episode. Patient has dementia and significant aphasia, unfortunately could not provide much history. Per ER physician, patient lives at a personal retirement. Was ambulating down the hallway with a friend when he sat down. He then apparently syncopized and fell to the ground. The friend went to find help and when he returned the patient was once again awake. However he was significantly aphasic and seemed very confused. Patient was brought to the emergency room for further evaluation by EMS. Patient's speech seemed to clear over his time the emergency room. No seizure activity was reported. The patient did mention headache to EMS but denied it to the ER physician as well as to myself. When I went to evaluate the patient, he is alert. He does have significant aphasia still which seems to cause some frustration. He has poor memory and cannot answer many questions about his previous admissions. He did not appear to be in any distress. He was hypertensive but other vital signs are stable. He had no focal neurological deficit outside of his speech. Patient is now being admitted for further work-up of a CVA/TIA versus new onset seizure. Principal Diagnosis Likely vasovagal syncope Discharge Exam Constitutional WD/WN, vitals as above Eyes EOM intact bilaterally; no conjunctival abnormality ENMT external ear and nose normal, oropharynx normal Neck trachea midline, no thyromegaly normal visual inspection Respiratory normal respiratory effort, lungs clear to auscultation no respiratory distress Cardiovascular RRR, no murmur, no edema Gastrointestinal (Abdomen) Inspection/Auscultation: abdomen normal to inspection; abdomen not distended Musculoskeletal no cyanosis or clubbing, extremities motor strength 5/5 Skin no rashes, warm and dry Neurologic moves all extremities and awake Psychiatric Orientation: alert; + uncooperative Discharge Data Allergies Allergy/AdvReac Type Severity Reaction Status Date / Time dextran 40 Allergy Unknown Verified 12/07/20 19:08 rivastigmine [From Exelon] Allergy Unknown Verified 12/07/20 19:08 Consultations 12/07/20 17:13 ED Decision to Admit Stat 12/07/20 21:18 Consult Neurology Routine Ordered Studies 12/07/20 16:23 CT angio head w con Stat CT angio neck with con Stat CT head/brain wo con Stat 12/08/20 21:18 MR brain wo con Routine Hospital Course (1) Syncope: Question of CVA/TIA versus new onset seizure We will admit patient under stroke protocol CT/CT angiogram of head and neck all unremarkable on presentation We will check MRI Check 2D echo Will need speech eval prior to diet release Check EEG We will ask neurology to evaluate for further recommendations Patient is already on an aspirin a day along with full dose anticoagulation with warfarin - No stroke on MRI. No seizure potential seen on EEG. Seen by neurology with thought it was vasovagal from his galantamine which was recommended to be lowered. - He became increasingly combative and confused during his stay. Discussion was had with his daughter who felt that return to his memory unit would be best. Of note, this patient is DNR/DNI and has known permissive aspiration from prior RN SANE evals. Family prefers to focus on comfort given his age and significant dementia. (2) DVT (deep venous thrombosis): Patient has a previous history of DVT INR is 3.1 on presentation, will continue to follow (3) CKD (chronic kidney disease) stage 3, GFR 30-59 ml/min: Patient's creatinine is 1.42, mildly elevated from baseline We will give gentle IV hydration while patient is n.p.o. (4) HTN (hypertension): Patient is on Toprol 100 mg daily for blood pressure control Patient is currently hypertensive, will allow permissive hypertension for 24 hours per stroke protocol (5) Dyslipidemia: Patient is on atorvastatin 20 mg Check fasting lipids (6) Alzheimer disease: Medication shows of amantadine and glad amine, will continue both of these (7) Antiphospholipid antibody positive: Full dose anticoagulation as noted above (8) Paroxysmal atrial flutter: Currently rate controlled metoprolol, full dose anticoagulation as noted above (9) CAD, multiple vessel: Check fasting lipids, continue aspirin and atorvastatin as noted Total Time Total Time Spent Total Time Spent (In Minutes): 35 Discharge Plan Discharge Items Patient Disposition: Transfer Jail Fac Reason For Visit: SYNCOPE Discharge Diagnosis: Likely vasovagal syncope Condition on Discharge: Good Activity: Resume your previous activity Non-emergency contact: Primary Care Provider Call non-emergency contact if: your symptoms worsen Follow-up/Referrals: Bibi Burris [Primary Care Provider] - Diet: Regular Addtl Attending Provider Instructions: Mr. Marcelino was brought to the hospital after an episode of syncope at his home. The neurologist saw him and felt that he likely had a vasovagal syncope episode due to the galantamine which can cause this. He recommended lowering the dose to 8 mg to avoid this. His speech was initially fairly halting with some concern for aphasia, but per his family, this is his baseline. He was quite confused here, but again, due to his dementia, this is likely his baseline. He demonstrated no focal neurologic deficits. Given his family's priority of comfort care, he was discharged home. Pending Studies at Discharge: No Stand-Alone Forms: My [facility] Skilled Items Patient informed of condition?: Yes DNR: Yes Discharge Level of Care: Skilled Communicable Disease: No Discharge Prognosis: Stable Lines: None Urinary Catheter: No Medications and DC Order Prescriptions: New galantamine 8 mg capsule,ext rel. pellets 24 hr 8 mg PO QAM Qty: 14 RF: 0 Continued atorvastatin 20 mg tablet 20 mg PO DAILY RF: 0 aspirin 81 mg Tablet,Delayed Release (Dr/Ec) 81 mg PO DAILY RF: 0 memantine 28 mg Capsule,Sprinkle,Er 24hr 28 mg PO DAILY RF: 0 acetaminophen [Tylenol] 325 mg Tablet 650 mg PO Q4 PRN (Reason: Fever Or Pain) RF: 0 metoprolol tartrate 100 mg tablet 100 mg PO DAILY RF: 0 sennosides-docusate sodium [Senna-S] 8.6-50 mg Tablet 2 tab-cap PO BID RF: 0 warfarin 2.5 mg tablet 2.5 mg PO DAILY RF: 0 nystatin 100,000 unit/gram cream 1 applic TOPICAL BID RF: 0 cholecalciferol (vitamin D3) [Vitamin D3] 25 mcg (1,000 unit) Tablet 25 mcg PO DAILY RF: 0 Discontinued galantamine 16 mg capsule,ext rel. pellets 24 hr 16 mg PO QAM RF: 0 Discharge Orders: Discharge Order (Routine); Ordered 12/08/20 Ordered By: Omar Diaz Admission Data Admit Date/Time: 12/07/20 18:26 Attending Provider: Omar Diaz Admit Provider: Roman Munguia Primary Care Provider: Bibi Burris Other Providers: Peter Briscoe ; Omar Diaz Other Interventions: Discharge Summary Assessment (RN) Last Done: 12/08/20 13:16 Coding Level of Care Code D/C DAY MANAGEMENT >30 MINS Diagnoses Syncope R55 Syncope type: unspecified DVT (deep venous thrombosis) I82.409 CKD (chronic kidney disease) stage 3, GFR 30-59 ml/min N18.30 HTN (hypertension) I10 Dyslipidemia E78.5 Alzheimer disease G30.9; F02.80 Antiphospholipid antibody positive R76.0 Paroxysmal atrial flutter I48.92 CAD, multiple vessel I25.10
--- NOTE | 2020-12-08 19:58 | XCELERA ---
[id number]
--- NOTE | 2020-12-10 06:14 | Electrocardiogram Report ---
Test Reason : Blood Pressure : / mmHG Vent. Rate : 071 BPM Atrial Rate : 071 BPM P-R Int : 154 ms QRS Dur : 090 ms QT Int : 382 ms P-R-T Axes : 023 004 019 degrees QTc Int : 415 ms Poor data quality, interpretation may be adversely affected Normal sinus rhythm Possible Inferior infarct , age undetermined Abnormal ECG When compared with ECG of 27-MAY-2020 11:39, Premature ventricular complexes are no longer Present Confirmed by Reji Kim [id number]) on 12/10/2020 6:14:37 AM Referred By: [facility] Confirmed By:Reji Kim
== END 2020-12-08 14:17 ==
LOC: ED 16:23 → INTOOBSV 18:26 → SUATTDRO 18:26 → 2S 18:26